=== PATIENT | male | born 1955 | race Caucasian/White ===

== ENCOUNTER 2020-01-30 16:48 | Outpatient (REF) | payer OTHER, SELFPAY | END 2020-01-30 16:49 | disposition home or self-care (01) | LOC: HO.LAB 16:48 | PROVIDERS: Visit Provider Internal Medicine | DX: Z20.828 Contact with and (suspected) exposure to other viral communicable diseases (principal) | CPT/HCPCS: C9803; U0003 ==

== ENCOUNTER 2024-02-29 01:01 | Emergency (ER) | payer OTHER, SELFPAY ==
--- NOTE | ~2024-02-29 | XR_ITS ---
EXAMINATION: XR CHEST CLINICAL INFORMATION: Dyspnea COMPARISON: October 31, 2018 TECHNIQUE: Frontal view of the chest was obtained. FINDINGS: The cardiomediastinal silhouette is stable. Innumerable small calcific granulomas are noted. There is no focal consolidation or pleural effusions. The bony structures and the soft tissues are unremarkable. XR/XR chest 1V IMPRESSION: No acute cardiopulmonary disease. Electronically signed by: Hiram Chinchilla MD 02/29/2024 01:58 AM [facility]
[2024-02-29 01:10] VITALS: BP 174/90; PULSE 77; PULSE 92; RESP 21; TEMP 36.9; O2SAT 95; O2SAT 96; BMI 30.6
--- NOTE | 2024-02-29 01:12 | ECG_ITS ---
Test Reason : DYSPNEA Blood Pressure : / mmHG Vent. Rate : 084 BPM Atrial Rate : 084 BPM P-R Int : 144 ms QRS Dur : 086 ms QT Int : 372 ms P-R-T Axes : 048 021 052 degrees QTc Int : 439 ms Sinus rhythm with Premature atrial complexes Otherwise normal ECG When compared with ECG of 14-JAN-2019 10:43, Criteria for Septal infarct are no longer Present Referred By: Generic ED Physician Electronically Signed By:QUENTIN ALVAREZ
--- NOTE | 2024-02-29 01:19 | ED_ITS ---
HPI - SOB/Dyspnea General Chief Complaint: Dyspnea Stated Complaint: SOB Time Seen by Provider: 02/29/24 01:19 Source: patient Mode of arrival: ambulatory Limitations: no limitations History of Present Illness ED Provider: HPI Narrative: Patient's from [facility] chronic smoker comes here for nonspecific shortness of breath saturating 96% on room no obvious distress no chest pain Related Data Allergies Allergy/AdvReac Type Severity Reaction Status Date / Time lithium [LITHIUM] Allergy Unknown PRONE TO Verified 02/29/24 01:15 TOXICITY Review of Systems 2 Review of Systems: Yes all other systems are reviewed and are negative FORMERLY [facility] Social History Social History Smoked in Last 30 Days: Yes Use of substances other than those prescribed or required for medical reasons: No Advance Directives: No Advance Directives Information Provided: Yes Do you have a plan to hurt others: No Plan Physical Exam 2 Vital Signs: Vital Signs: Last Vital Signs Temp 98.5 F 02/29/24 05:42 Pulse 90 02/29/24 05:42 Resp 20 02/29/24 05:42 BP 159/82 H 02/29/24 05:42 Pulse Ox 96 02/29/24 05:42 O2 Del Method Room Air 02/29/24 05:42 BMI result Body Mass Index 30.6 Appearance: Alert. Oriented X2. No acute distress. Eyes: PERRLA, No Nystagmus ENT: Pharynx normal. Oral Mucosa moist Neck: Normal inspection. Neck supple. CVS: Normal heart rate and rhythm. Pulses normal. Respiratory: No respiratory distress. Equal air entry bilateral, no wheezing/rales/rhonchi Abdomen: Soft and nontender. Bowel sounds are present, no mass palpable, no CVA tenderness Skin: Skin warm and dry. Normal skin color. Normal skin turgor. Extremities: No lower extremity edema. No calf tenderness Neuro: Oriented X 2. No motor deficit. No sensory deficit.No cerebellar signs , cranial nerves II-XII intact Medical Decision Making Medical Decision Making MDM Narrative: Patient has chronic smoker from [facility] sent for questionable shortness a breath workup is negative for any significant shortness a breath patient noticed to be smoker likely short of breath because of chronic smoking in the ER patient is saturating 95% at room air no wheezing noticed chest x-ray negative cardiac workup also negative patient slept normal ambulatory in the ER will discharge patient back to [facility] advised to use inhaler as needed and stop smoking Differential Diagnosis Differential Diagnoses: The differential diagnosis associated with the presentation includes CHF/COPD/chronic bronchitis/pneumothorax Lab Data MDM Lab Attestation statement: I reviewed the patient's lab results. 02/29/24 01:34 02/29/24 01:35 Labs: Lab Results 02/29/24 02/29/24 02/29/24 Range/Units 01:34 01:35 01:39 WBC 7.9 (4.8-10.8) X10*3/uL RBC 3.51 L (4.60-5.80) X10*6/uL Hgb 11.6 L (14.0-18.0) g/dl Hct 34.2 L (42.0-52.0) % MCV 97.4 (80.0-98.0) fL MCH 33.0 (27.0-33.0) pg MCHC 33.9 (31.0-36.0) g/dl RDW 13.8 (11.0-16.0) % Plt Count 137 L (160-400) X10*3/uL MPV 9.3 L (9.4-12.4) fL Immature Gran % (Auto) 0.4 (0.0-0.4) % Neut % (Auto) 29.8 L (45-73) % Lymph % (Auto) 56.5 H (20-40) % [place] % (Auto) 11.8 H (2-11) % Eos % (Auto) 1.1 (0-4) % Baso % (Auto) 0.4 (0-2) % Lymph # (Auto) 4.5 (1.2-4.9) X10*3/uL [place] # (Auto) 0.9 (0.1-1.2) X10*3/uL Eos # (Auto) 0.1 (0.0-0.4) X10*3/uL Baso # (Auto) 0.0 (0.0-0.2) X10*3/uL Abs Immat Gran (auto) 0.03 (0.00-0.03) X10*3/uL Absolute Neuts (auto) 2.4 (2.0-8.3) x10*3/uL Absolute Nucleated RBC 0.000 (0.0-0.012) X10*3/uL Nucleated RBC % (auto) 0.0 (0.0-0.2) /100WBC VBG pH 7.37 (7.32-7.43) VBG pCO2 41 mmHg VBG pO2 115 mmHg VBG HCO3 24 (22-26) mmol/L VBG O2 Saturation 99.0 % VBG Base Excess -0.5 mmol/L Sodium 148 H (135-145) mmol/L Potassium 4.3 (3.3-5.1) mmol/L Chloride 115 H (96-108) mmol/L Carbon Dioxide 22 (22-29) mmol/L Anion Gap 15 (12-20) BUN 16 (9-16) mg/dL Creatinine 1.25 (0.5-1.4) mg/dL Estim Creat Clear Calc 58.1 Estimated GFR 57 Random Glucose 114 (60-115) mg/dL Calcium 8.5 (8.4-10.2) mg/dL Magnesium 1.7 (1.6-2.6) mg/dL Total Bilirubin 0.1 (0.0-1.0) mg/dL AST 14 (5-37) U/L ALT 11 (0-40) U/L Alkaline Phosphatase 66 (39-117) U/L Troponin I High Sens 5.4 (<3.5-35.0) ng/L B-Natriuretic Peptide 180 H (<100) pg/mL Total Protein 5.3 L (6.5-8.0) g/dL Albumin 3.3 L (3.5-5.0) g/dL Urine Color Urine Appearance Urine pH (5.0-9.0) Ur Specific [place] (1.005-1.025) Urine Protein (Neg-Trace) mg/dL Urine Glucose (UA) (Negative) mg/dL Urine Ketones (Negative) mg/dL Urine Blood (Negative) Urine Nitrite (Negative) Ur Leukocyte Esterase (Negative) Urine RBC (0-2) /HPF Urine WBC (0-5) /HPF Ur Squamous Epith Cells (0-2) /HPF Urine Bacteria (None Seen) Hyaline Casts (0-2) /LPF COVID-19 (CRUZITO) Negative (Negative) COVID-19 Clin Com See Note Influenza Type A (ZAIN) Negative (Negative) Influenza Type B (ZAIN) Negative (Negative) Influenza A & B Note See Note 02/29/24 Range/Units 02:14 WBC (4.8-10.8) X10*3/uL RBC (4.60-5.80) X10*6/uL Hgb (14.0-18.0) g/dl Hct (42.0-52.0) % MCV (80.0-98.0) fL MCH (27.0-33.0) pg MCHC (31.0-36.0) g/dl RDW (11.0-16.0) % Plt Count (160-400) X10*3/uL MPV (9.4-12.4) fL Immature Gran % (Auto) (0.0-0.4) % Neut % (Auto) (45-73) % Lymph % (Auto) (20-40) % [place] % (Auto) (2-11) % Eos % (Auto) (0-4) % Baso % (Auto) (0-2) % Lymph # (Auto) (1.2-4.9) X10*3/uL [place] # (Auto) (0.1-1.2) X10*3/uL Eos # (Auto) (0.0-0.4) X10*3/uL Baso # (Auto) (0.0-0.2) X10*3/uL Abs Immat Gran (auto) (0.00-0.03) X10*3/uL Absolute Neuts (auto) (2.0-8.3) x10*3/uL Absolute Nucleated RBC (0.0-0.012) X10*3/uL Nucleated RBC % (auto) (0.0-0.2) /100WBC VBG pH (7.32-7.43) VBG pCO2 mmHg VBG pO2 mmHg VBG HCO3 (22-26) mmol/L VBG O2 Saturation % VBG Base Excess mmol/L Sodium (135-145) mmol/L Potassium (3.3-5.1) mmol/L Chloride (96-108) mmol/L Carbon Dioxide (22-29) mmol/L Anion Gap (12-20) BUN (9-16) mg/dL Creatinine (0.5-1.4) mg/dL Estim Creat Clear Calc Estimated GFR Random Glucose (60-115) mg/dL Calcium (8.4-10.2) mg/dL Magnesium (1.6-2.6) mg/dL Total Bilirubin (0.0-1.0) mg/dL AST (5-37) U/L ALT (0-40) U/L Alkaline Phosphatase (39-117) U/L Troponin I High Sens (<3.5-35.0) ng/L B-Natriuretic Peptide (<100) pg/mL Total Protein (6.5-8.0) g/dL Albumin (3.5-5.0) g/dL Urine Color Yellow Urine Appearance Clear Urine pH 6.5 (5.0-9.0) Ur Specific Wayne 1.010 (1.005-1.025) Urine Protein Negative (Neg-Trace) mg/dL Urine Glucose (UA) Negative (Negative) mg/dL Urine Ketones Negative (Negative) mg/dL Urine Blood Trace H (Negative) Urine Nitrite Negative (Negative) Ur Leukocyte Esterase Negative (Negative) Urine RBC 3-5 H (0-2) /HPF Urine WBC 0-5 (0-5) /HPF Ur Squamous Epith Cells 0-2 (0-2) /HPF Urine Bacteria None Seen (None Seen) Hyaline Casts 0-2 (0-2) /LPF COVID-19 (CRUZITO) (Negative) COVID-19 Clin Com Influenza Type A (ZAIN) (Negative) Influenza Type B (ZAIN) (Negative) Influenza A & B Note ABG Data Attestation ABG: I personally reviewed and interpreted this ABG as follows: Interpretation: No hypoxia Independent Interpretation I performed an independent interpretation of an: EKG and Plain X-Ray Interpretation: Normal sinus rhythm with ventricular rate 84 beats per minute with few PACs no acute ST-T changes no acute ischemia Radiology Impression Discussion of test interpretation with radiology: I have reviewed the radiologist's reading. Radiologist Impression: [address] [address] XRay Report Signed Patient: Rgoer Hooks MR#: [id number] : 1955 Acct:[id number] Age/Sex: 68 / M ADM Date: 02/29/24 Loc: HO.ED Attending Dr: Ordering Physician: Roque Hernández MD Date of Service: 02/29/24 Procedure(s): XR chest 1V Accession Number(s): [id number] cc: Roque Hernández MD~ EXAMINATION: XR CHEST CLINICAL INFORMATION: Dyspnea COMPARISON: October 31, 2018 TECHNIQUE: Frontal view of the chest was obtained. FINDINGS: The cardiomediastinal silhouette is stable. Innumerable small calcific granulomas are noted. There is no focal consolidation or pleural effusions. The bony structures and the soft tissues are unremarkable. XR/XR chest 1V IMPRESSION: No acute cardiopulmonary disease. Electronically signed by: Hiram Chinchilla MD 02/29/2024 01:58 AM [facility] Discharge Plan Discharge Clinical Impression: Chronic lung disease Patient Disposition: Home, Self-Care Instructions: COPD (Chronic Obstructive Pulmonary Disease) (ED), Shortness of Breath (ED) Additional Instructions: You have chronic lung disease from smoking Do not smoke Use inhaler as advised if wheezing Print Language: Rwandan
[2024-02-29 01:39] LABS: MANUAL DIFF FLAG NO
[2024-02-29 01:41] LABS: Basophils Percent Auto 0.4 % (0-2); Eosinophils Absolute Auto 0.1 X10*3/uL (0.0-0.4); Eosinophils Percent Auto 1.1 % (0-4); Hematocrit 34.2 % (42.0-52.0); Hemoglobin 11.6 g/dl (14.0-18.0); Imm Gran Abs Auto 0.03 X10*3/uL (0.00-0.03); Imm Gran Pct Auto 0.4 % (0.0-0.4); Lymphocytes Absolute Auto 4.5 X10*3/uL (1.2-4.9); Lymphocytes Percent Auto 56.5 % (20-40); Mean Corpuscular HGB Conc 33.9 g/dl (31.0-36.0); Mean Corpuscular Volume 97.4 fL (80.0-98.0); Mean Platelet Volume 9.3 fL (9.4-12.4); Monocytes Absolute Auto 0.9 X10*3/uL (0.1-1.2); Monocytes Percent Auto 11.8 % (2-11); Neutrophils Absolute Auto 2.4 x10*3/uL (2.0-8.3); Neutrophils Percent Auto 29.8 % (45-73); Platelet Count 137 X10*3/uL (160-400); Red Blood Count 3.51 X10*6/uL (4.60-5.80); Red Cell Distribution Width 13.8 % (11.0-16.0); White Blood Count 7.9 X10*3/uL (4.8-10.8)
[2024-02-29 01:41] LABS: Venous Blood Gas Refer to POC result
[2024-02-29 01:44] LABS: VBG Base Excess -0.5 mmol/L; VBG HCO3 24 mmol/L (22-26); VBG pCO2 41 mmHg; VBG pH 7.37 (7.32-7.43); VBG pO2 115 mmHg
[2024-02-29 02:00] LABS: Troponin-I High Sensitivity 5.4 ng/L (<3.5-35.0)
[2024-02-29 02:00] LABS: B Type Natriuretic Peptide 180 pg/mL (<100)
[2024-02-29 02:13] VITALS: BP 180/97; PULSE 77; RESP 21; TEMP 36.8; O2SAT 97
[2024-02-29 02:14] LABS: Alanine Aminotransferase 11 U/L (0-40); Albumin Level 3.3 g/dL (3.5-5.0); Alkaline Phosphatase 66 U/L (39-117); Anion Gap 15 (12-20); Aspartate Amino Transferase 14 U/L (5-37); Bilirubin Total 0.1 mg/dL (0.0-1.0); Blood Urea Nitrogen 16 mg/dL (9-16); Calcium 8.5 mg/dL (8.4-10.2); Carbon Dioxide 22 mmol/L (22-29); Chloride 115 mmol/L (96-108); Creatinine Clr Calc Pharmacy 58.1; Estimated Glomerular Filt Rate 57; Glucose Random 114 mg/dL (60-115); Magnesium 1.7 mg/dL (1.6-2.6); Potassium 4.3 mmol/L (3.3-5.1); Sodium 148 mmol/L (135-145); Total Protein 5.3 g/dL (6.5-8.0)
[2024-02-29 02:16] LABS: COVID-19 Test Negative (Negative); IDNOW Serial# 55D5AD1C; IDNOW Serial# 58CA691E; Influenza A Negative (Negative); Influenza B2 Negative (Negative)
[2024-02-29 02:21] LABS: Appearance Urine Clear; Color Urine Yellow; Glucose Urine UA Negative (Negative); Leukocyte Esterase Urine Negative (Negative); Nitrite Urine Negative (Negative); PH 6.5 (5.0-9.0); UMIC TRIGGER UACC YES; Urine Blood Trace (Negative); Urine Ketones Negative (Negative); Urine Protein Negative (Neg-Trace)
[2024-02-29 02:25] LABS: Bacteria Urine None Seen (None Seen); Hyaline Casts Urine 0-2 /LPF (0-2); Squamous Epithelial Cell Urine 0-2 /HPF (0-2); WBC Urine 0-5 /HPF (0-5)
--- NOTE | 2024-02-29 03:20 | MHC.EDTECH ---
This tech took over care of pt at 0300AM,rounded and introduced self to pt pt appears comfortable,call echeverria in reach
[2024-02-29 05:42] VITALS: BP 159/82; PULSE 90; RESP 20; TEMP 36.9; O2SAT 96
--- NOTE | 2024-02-29 06:37 | PC.NURSE ---
Called pts [facility] at [phone] and spoke with Maria Fernanda. Discharge instructions provided over the telephone and pt is ready to return. 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 Pt aware.
--- NOTE | 2024-02-29 07:43 | PC.NURSE ---
This RN touched base with care home in regards to when they would be coming to pick him up, Maria Fernanda alerted more staff members will be in at 8, and they will come pick him up between 8-9. Pt is starting to get ramped up, pacing, attempting to leave, pt had cig/mail officer in hand, security notified to remove from pt. Pt given breakfast tray at this time to try and settle patient at this time
[2024-02-29 09:29] VITALS: BP 169/79; PULSE 75; RESP 18; TEMP 36.8
== END 2024-02-29 09:30 | disposition home or self-care (01) ==
PROVIDERS: Emergency Provider Internal Medicine; PCP Nurse Practitioner Adult Health
DX: J98.4 Other disorders of lung (principal); R06.00 Dyspnea, unspecified; R06.02 Shortness of breath; F17.200 Nicotine dependence, unspecified, uncomplicated
CPT/HCPCS: 36415; 71045; 80053; 81001; 82803; 83735; 83880; 84484; 85025; 87502; 87635; 93005; 99285

== ENCOUNTER → 2024-02-29 01:12 | Outpatient (BNV) | payer OTHER, SELFPAY | PROVIDERS: Emergency Provider Internal Medicine; PCP Nurse Practitioner Adult Health; Visit Provider Internal Medicine | DX: R06.09 Other forms of dyspnea (principal); I49.1 Atrial premature depolarization | CPT/HCPCS: 93010 ==

== ENCOUNTER 2024-11-03 20:56 | Emergency (ER) | payer OTHER, SELFPAY ==
--- OUTSIDE RECORDS SUMMARY | 2024-10-30 23:59 | XMS_ITS | Continuity of Care Document ---
Author Organization [facility] Address [address] [place] [address]- Care Team Providers Care Price Analyst Name Role Phone Francis PAINT TESTER, Mila Josue Primary Care Physician Encounter [facility] Date(s): 09/30/24 - 10/30/24 [facility] [address] [place] [id number] Encounter Type: Triage Allergies, Adverse Reactions, Alerts Substance Criticality Severity Reaction Reaction Severity Status lithium carbonate 1 Active 1encephalopathy Immunizations Given and Recorded Vaccine Date Status Refusal Reason influenza virus vaccine, inactivated 1 12/25/22 Gi brandon influenza virus vaccine, inactivated 2 12/25/18 Gi brandon influenza virus vaccine, inactivated 02/07/18 Give n influenza virus vaccine, inactivated 3 12/01/16 Gi brandon influenza virus vaccine, inactivated 01/24/13 Give n influenza virus vaccine, inactivated 01/01/09 Give n SARS-CoV-2 (COVID-19) mRNA BNT-162b2 vac 01/05/21 Recorded SARS-CoV-2 (COVID-19) mRNA BNT-162b2 vac 04/29/20 Recorded SARS-CoV-2 (COVID-19) mRNA BNT-162b2 vac 04/08/20 Recorded 1Result Comment: [facility] [id number] 2Result Comment: [facility] [id number] 3Result Comment: [id number] Medications ammonium lactate 12% topical cream 1 application, Topically, 2 times a day, apply and rub in well, # 280 Gm, 0 Refills, Maintenance, 06/13/23 3:08:00 PM EDT, Cream, [facility], Partial fill upon patient request if the prescription is for a schedule II opioid drug., 1 application Topically 2 times a day,Instr:apply and rub inwell, 170, cm, 12/25/22 12:55:00 EDT, Height Start Date: 06/13/23 Status: Ordered Quantity: 280.0 Unit: g Repeat number: 1 Aquaphor Healing topical ointment See Instructions, APPLY TOPICALLY 2 TIMES A DAY NEEDED FOR DRY SKIN., # 100 Gm, 2 Refills, Soft Stop, 06/08/23 1:13:00 PM EDT, [facility], APPLY TOPICALLY 2 TIMES A DAY NEEDED FOR DRY SKIN., 170, cm, 12/25/22 12:55:00 EDT, Height Start Date: 06/08/23 Status: Ordered Quantity: 100.0 Unit: g Repeat number: 3 Ativan 0.5 mg oral tablet 0.5 tablet = 0.25 mg, By Mouth, Once, 0 Refills, Maintenance, 12/27/17 3:21:19 PM EDT, Tablet Start Date: 12/27/17 Status: Ordered Repeat number: 1 betamethasone-clotrimazole 0.05%-1% topical cream 1 application, Topically, 2 times a day, # 45 Gm, 2 Refills, Maintenance, 06/08/23 1:13:00 PM EDT, Cream, [facility], 1 application Topically 2 times a day, 170, cm, 12/25/22 12:55:00 EDT, Height Start Date: 06/08/23 Status: Ordered Quantity: 45.0 Unit: g Repeat number: 3 cholecalciferol 50,000 intl units oral capsule 1 capsule = 50,000 International_Units, By Mouth, Every 7 days, # 5 capsule, 11 Refills, Maintenance, 03/19/23 7:44:00 AM EST, Capsule, [facility], Partial fill upon patient request, 170, cm,12/25/22 12:55:00 EDT, Height Start Date: 03/19/23 Stop Date: 03/13/24 Status: Ordered Quantity: 5.0 Unit: capsule Repeat number: 12 cholecalciferol 50,000 intl units oral capsule 1 capsule = 50,000 International_Units, By Mouth, Every 7 days, # 13 capsule, 3 Refills, Maintenance, 03/17/23 10:16:00 AM EST, Capsule, [facility], Partial fill upon patient request, 170, cm, 12/25/22 12:55:00 EDT, Height Start Date: 03/17/23 Stop Date: 03/11/24 Status: Ordered Quantity: 13.0 Unit: capsule Repeat number: 4 Citroma Lemon 1.745 g/30 mL oral liquid See Instructions, DRINK 150 ML BY MOUTH ONCE, # 296 mL, 1 Refills, Maintenance, 07/17/23 1:58:00 PM EDT, [facility], 1, DRINK 150 ML BY MOUTH ONCE, 170, cm, 07/17/23 13:17:00 EDT, Height Start Date: 07/17/23 Status: Ordered Quantity: 296.0 Unit: mL Repeat number: 2 clozapine 100 mg oral tablet = 300 mg, By Mouth, Daily at bedtime, # 90 tablet, 0 Refills, Maintenance, 11/21/16 9:49:21 AM EDT, Tablet Start Date: 11/21/16 Stop Date: 12/21/16 Status: Ordered Quantity: 90.0 Unit: tablet Repeat number: 1 clozapine 50 mg oral tablet = 50 mg, By Mouth, Daily before breakfast, # 30 tablet, 0 Refills, Maintenance, 11/21/16 9:49:17 AM EDT, Tablet Start Date: 11/21/16 Stop Date: 12/21/16 Status: Ordered Quantity: 30.0 Unit: tablet Repeat number: 1 coconut oil coconut oil, See Instructions, # 90 each, Refills 0, Tot. Refills 0, Maintenance, 1 3 x day, :51:00 PM EDT, Compound, 170, cm, 12/25/22 12:55:00 EDT, Height Start Date: 06/15/23 Status: Ordered Quantity: 90.0 Unit: each Repeat number: 1 divalproex sodium 500 mg oral tablet, extended release 1 tablet = 500 mg, By Mouth, 3 times a day, # 60 tablet, 0 Refills, Maintenance, 01/10/16 11:13:42 AM EDT, ER Tablet Start Date: 01/10/16 Status: Ordered Quantity: 60.0 Unit: tablet Repeat number: 1 docusate sodium 100 mg oral capsule See Instructions, TAKE 1 CAPSULE BY MOUTH 2 TIMES A DAY, # 60 capsule, 3 Refills, Maintenance, 09/26/24 7:15:00 AM EDT, [facility], 170, cm, 03/11/24 13:17:00 EST, Height Start Date: 09/26/24 Status: Ordered Quantity: 60.0 Unit: capsule Repeat number: 1 lactulose 10 g/15 mL oral and rectal liquid 30 mL, By Mouth, 2 times a day, X90 DAYS., # 5,400 mL, 10 Refills, Maintenance, 07/13/23 1:43:00 PM EDT, [facility], 170, cm, 07/06/23 12:10:00 EDT, Height Start Date: 07/13/23 Status: Ordered Quantity: 5400.0 Unit: mL Repeat number: 1 MiraLax oral powder for reconstitution = 17 Gm, By Mouth, Daily, dissolve in water before taking, # 255 Gm, 0 Refills, Maintenance, 08/12/2209:33:00 AM EDT, REC Powder, [facility], 17 Gm By Mouth Daily,Instr:dissolve in water before taking, 170, cm, 08/19/20 10:40:00 EDT, Height Start Date: 08/12/21 Status: Ordered Quantity: 255.0 Unit: g Repeat number: 1 oxyCODONE 5 mg oral tablet See Instructions, PRN, 1 tablet By Mouth 20-30 minutes before foot procedure, may repeat x1, # 2 tablet, Refills 0, Tot. Refills 0, Maintenance, as needed for pain, 08/03/23 3:43:00 PM EDT, Instructions Replace Required Details, Route to Pharmacy Electronically, [facility], Partial fill upon patient request if the prescription is for a schedule II opioid drug., 170, cm, 08/03/23 15:16:00EDT, Height Start Date: 08/03/23 Status: Ordered Quantity: 2.0 Unit: tablet Repeat number: 1 Indications: Pain in left foot; polyethylene glycol 3350 oral powder for reconstitution See Instructions, TAKE 17 GM BY MOUTH DAILY INSTR:DISSOLVE IN WATER BEFORE TAKING, # 238 Gm, 11 Refills, Maintenance, 03/16/23 8:37:00 AM EST, [facility], 14, TAKE 17 GM BY MOUTH DAILY INSTR:DISSOLVE IN WATER BEFORE TAKING, 170, cm, 12/25/22 12:55:00 EDT, Height Start Date: 03/16/23 Status: Ordered Quantity: 238.0 Unit: g Repeat number: 12 Potassium Chloride (Agg-Elpu-Ucp 10) 10 mEq oral tablet, extended release 1 tablet = 10 mEq, By Mouth, Daily, # 30 tablet, 11 Refills, Maintenance, 02/14/24 4:09:00 PM EST, [facility], 170, cm, 01/15/24 13:07:00 EST, Height Start Date: 02/14/24 Stop Date: 02/08/25 Status: Ordered Quantity: 30.0 Unit: tablet Repeat number: 12 Tab-A-Kartik oral tablet 1 tablet, By Mouth, Daily, # 30 tablet, 4 Refills, Maintenance, 07/02/24 10:20:00 AM EDT, [facility], 30, 1 tablet By Mouth Daily, 170, cm, 03/11/24 13:17:00 EST, Height Start Date: 07/02/24 Status: Ordered Quantity: 30.0 Unit: tablet Repeat number: 5 Problem List Condition Confirmation Course Effective Dates Status H ealth Status Informant CKD (chronic kidney disease) stage 3, GFR 30-59 ml/min Confirmed Active COPD (chronic obstructive pulmonary disease) Confirmed Active Chronic schizophrenia Confirmed Active Constipation NOS Confirmed 04/15/10 Active Esophageal reflux (GERD) Confirmed 04/15/10 Active Histoplasmosis NEC Confirmed Active Tobacco dependence syndrome Confirmed Active Social History Social History Type Response Smoking Status Current every day sm oker; Tobacco user in household: No entered on: 03/24/13 Sex Sex Representation Male (finding) Patient Care team information Care Team Personnel Name: Keke Spencer RN Position: [facility] RN Member Role: Primary Care Nurse Name: Jessica Montes RN Position: [facility] RN Member Role: Primary Care Nurse Name: Griselda Lopez RN Position: [facility] ED RN W/OE and Tasks Member Role: Primary Care Nurse Name: Mila Blanco NP Position: [facility] PCO Associate Professional Member Role: PCP Address: [address] [place] [address]- Telecom: Name: Laxmi Beltran RN Position: [facility] RN Member Role: Primary Care Nurse Name: Josie France RN Position: [facility] Cook Helper Member Role: Primary Care Nurse Care Team Related Persons Name: GALEN CAMARGO Name: NADIA LANDON Name: FRENCH LANDON Name: HEAVEN CONDE Name: HEAVEN BECERRA Insurance Providers Guarantor name: JEAN CARLOS LANDON Health Plan Information #: 1 Payer: [facility] Payer Identifier: DONNA Member Number: [id number] Group Number: [id number] Subscriber Identifier: [id number] Relationship to Subscriber: self Coverage Type: Medicare Managed Care (Includes Medicare Advantage Plans) Coverage Verification Date: DONNA Telecom: NA Address: NA
--- OUTSIDE RECORDS SUMMARY | 2024-11-01 23:59 | XMS_ITS | Continuity of Care Document ---
Author Organization [facility] Adult Address [address] [place] [address]- Care Team Providers Care Jumpbasting Lining Baster Name Role Phone Francis TRIGONOMETRY TUTOR, Mila Josue Primary Care Physician Encounter [facility] Date(s): 10/02/24 - 11/01/24 [facility] [address] [place] [id number]- Encounter Type: Triage Allergies, Adverse Reactions, Alerts [...] mRNA BNT-[id number] vac 04/08/20 Recorded 1Result Comment: [facility] [id number] 2Result Comment: [facility] [id number] [phone] 3Result Comment: [id number] Medications ammonium lactate 12% topical cream 1 application, Topically, 2 times a day, apply and rub in well, # 280 Gm, 0 Refills, Maintenance, 06/13/23 3:08:00 PM EDT, Cream, [facility], Partial fill upon patient request if [...] Refills, Soft Stop, 06/08/23 1:13:00 PM EDT, [facility], APPLY TOPICALLY 2 TIMES A DAY [...] Refills, Maintenance, 06/08/23 1:13:00 PM EDT, Cream, [facility], 1 application Topically 2 times a day, 170, cm, 12/25/22 12:55:00 EDT, Height Start Date: 06/08/23 Status: Ordered Quantity: 45.0 Unit: g Repeat number: 3 cholecalciferol 50,000 intl units oral capsule 1 capsule = 50,000 International_Units, By Mouth, Every 7 days, # 5 capsule, 11 Refills, Maintenance, 03/19/23 7:44:00 AM EST, Capsule, [facility], Partial fill upon patient request, 170, cm,12/25/22 12:55:00 EDT, Height Start Date: 03/19/23 Stop Date: 03/13/24 Status: Ordered Quantity: 5.0 Unit: capsule Repeat number: 12 cholecalciferol 50,000 intl units oral capsule 1 capsule = 50,000 International_Units, By Mouth, Every 7 days, # 13 capsule, 3 Refills, Maintenance, 03/17/23 10:16:00 AM EST, Capsule, [facility], Partial fill upon patient request, 170, cm, 12/25/22 12:55:00 EDT, Height Start Date: 03/17/23 Stop Date: 03/11/24 Status: Ordered Quantity: 13.0 Unit: capsule Repeat number: 4 Citroma Lemon 1.745 g/30 mL oral liquid See Instructions, DRINK 150 ML BY MOUTH ONCE, # 296 mL, 1 Refills, Maintenance, 07/17/23 1:58:00 PM EDT, [facility], 1, DRINK 150 ML BY MOUTH [...] 3 Refills, Maintenance, 09/26/24 7:15:00 AM EDT, [facility], 170, cm, 03/11/24 13:17:00 EST, Height Start Date: 09/26/24 Status: Ordered Quantity: 60.0 Unit: capsule Repeat number: 1 lactulose 10 g/15 mL oral and rectal liquid 30 mL, By Mouth, 2 times a day, X90 DAYS., # 5,400 mL, 10 Refills, Maintenance, 07/13/23 1:43:00 PM EDT, [facility], 170, cm, 07/06/23 12:10:00 EDT, Height Start Date: 07/13/23 Status: Ordered Quantity: 5400.0 Unit: mL Repeat number: 1 MiraLax oral powder for reconstitution = 17 Gm, By Mouth, Daily, dissolve in water before taking, # 255 Gm, 0 Refills, Maintenance, 08/12/2209:33:00 AM EDT, REC Powder, [facility], 17 Gm By Mouth Daily,Instr:dissolve in [...] Replace Required Details, Route to Pharmacy Electronically, [facility], Partial fill upon patient request if [...] 11 Refills, Maintenance, 03/16/23 8:37:00 AM EST, [facility], 14, TAKE 17 GM BY MOUTH DAILY INSTR:DISSOLVE IN WATER BEFORE TAKING, 170, cm, 12/25/22 12:55:00 EDT, Height Start Date: 03/16/23 Status: Ordered Quantity: 238.0 Unit: g Repeat number: 12 Potassium Chloride (Xpi-Rutd-Mla 10) 10 mEq oral tablet, extended release 1 tablet = 10 mEq, By Mouth, Daily, # 30 tablet, 11 Refills, Maintenance, 02/14/24 4:09:00 PM EST, [facility], 170, cm, 01/15/24 13:07:00 EST, Height Start Date: 02/14/24 Stop Date: 02/08/25 Status: Ordered Quantity: 30.0 Unit: tablet Repeat number: 12 Tab-A-Kartik oral tablet 1 tablet, By Mouth, Daily, # 30 tablet, 4 Refills, Maintenance, 07/02/24 10:20:00 AM EDT, [facility], 30, 1 tablet By Mouth Daily, [...] Team Personnel Name: Keke Spencer RN Position: [facility] RN Member Role: Primary Care Nurse Name: Jessica Montes RN Position: [facility] RN Member Role: Primary Care Nurse Name: Griselda Lopez RN Position: [facility] ED RN W/OE and Tasks Member Role: Primary Care Nurse Name: Mila Blanco NP Position: [facility] PCO Associate Professional Member Role: PCP Address: [address] [place] [address]- Telecom: Name: Laxmi Beltran RN Position: [facility] RN Member Role: Primary Care Nurse Name: Josie France RN Position: [facility] Small Animal Caretaker Member Role: Primary Care Nurse Care Team Related Persons Name: GALEN CAMARGO Name: NADIA LANDON Name: FRENCH LANDON Name: HEAVEN CONDE Name: HEAVEN BECERRA Insurance Providers Guarantor name: JEAN CARLOS LANDON Health Plan Information #: 1 Payer: [facility] Payer Identifier: DONNA Member Number: [id number] Group Number: [id number] Subscriber Identifier: [id number] Relationship to Subscriber: self Coverage Type: Medicare Managed Care (Includes Medicare Advantage Plans) Coverage Verification Date: DONNA Telecom: NA Address: NA
--- NOTE | ~2024-11-03 | XR_ITS ---
CLINICAL HISTORY: constipation 1 view abdomen Comparison: None provided Findings: Low lung volumes with mild bibasilar atelectasis/pneumonitis in the [id number]. No small bowel dilatation in the imaged abdomen. Moderate to severe stool burden noted. Degenerative changes include imaged hips with question avascular necrosis, particularly in the right superficial opacities noted including involving the follicle in the [id number]. IMPRESSION: 1. No small bowel obstruction. 2. Moderate to severe stool burden This document has been electronically signed by: Dave Perla MD on 11/03/2024 23:00:30
[2024-11-03 21:04] VITALS: BP 141/82; BP 156/98; PULSE 84; PULSE 96; RESP 16; TEMP 36.6; O2SAT 96; O2SAT 99; BMI 25.5
[2024-11-03 21:08] VITALS: BP 141/82; PULSE 84; RESP 16; TEMP 36.6; O2SAT 96
[2024-11-03 21:26] LABS: Hematocrit 38.8 % (42.0-52.0); Hemoglobin 13.3 g/dl (14.0-18.0); Imm Gran Abs Auto 0.02 X10*3/uL (0.00-0.03); Imm Gran Pct Auto 0.2 % (0.0-0.4); Lymphocytes Absolute Auto 8.9 X10*3/uL (1.2-4.9); MANUAL DIFF FLAG SCAN; Mean Corpuscular HGB Conc 34.3 g/dl (31.0-36.0); Mean Corpuscular Hemoglobin 32.8 pg (27.0-33.0); Mean Corpuscular Volume 95.8 fL (80.0-98.0); NRBC Abs Auto 0.020 X10*3/uL (0.0-0.012); NRBC Pct Auto 0.2 /100WBC (0.0-0.2); Platelet Count 120 X10*3/uL (160-400); Red Blood Count 4.05 X10*6/uL (4.60-5.80); SCAN SMEAR FLAG 1; White Blood Count 12.0 X10*3/uL (4.8-10.8)
[2024-11-03 21:44] LABS: Anion Gap 12 (12-20); Blood Urea Nitrogen 7 mg/dL (9-16); Calcium 8.5 mg/dL (8.4-10.2); Carbon Dioxide 24 mmol/L (22-29); Chloride 109 mmol/L (96-108); Creatinine Clr Calc Pharmacy 56.2; Estimated Glomerular Filt Rate 54; Magnesium 1.3 mg/dL (1.6-2.6); Potassium 3.9 mmol/L (3.3-5.1); Sodium 141 mmol/L (135-145)
--- NOTE | 2024-11-03 22:09 | ED.GENADULT ---
HPI - General Adult General Chief complaint: General Medical Stated complaint: constipation, AMS, HTN, Schizophrenic Time Seen by Provider: 11/03/24 21:47 Source: patient, EMS and old records reviewed Mode of arrival: EMS Limitations: other (Intellectual delay, schizophrenia) History of Present Illness ED Provider: Dr. Chaya Majano HPI narrative: 69-year-old male with a history of schizophrenia presenting via EMS from a [place] [facility] with reported constipation. Staff reported to EMS he has not had a bowel movement in 3 days. Patient has no complaints. Denies abdominal pain. Voiding urine normally. Eating and drinking normally. Denies nausea. No reported fever. Related Data Previous Rx's ?Medication ?Instructions ?Recorded polyethylene glycol 3350 17 17 g PO DAILY #119 grams 11/04/24 gram/dose oral powder (Miralax) Allergies Allergy/AdvReac Type Severity Reaction Status Date / Time lithium (LITHIUM) Allergy Unknown PRONE TO Verified 11/03/24 21:07 TOXICITY Review of Systems Review of Systems: As per HPI, full review of systems performed and negative but for the above mentioned pertinent positives and negatives. [facility] Social History Social History Smoked in Last 30 Days: Yes Use of substances other than those prescribed or required for medical reasons: No Advance Directives: No Advance Directives Information Provided: Yes Physical Exam ED Exam Exam: GENERAL: Well-Appearing, conversant, no acute distress. SKIN: Normal skin color for ethnicity, warm, dry, no rashes noted. HEENT: Normocephalic, atraumatic, no stridor, posterior oropharynx nonerythematous, dentition intact, EOMI. NECK: Soft, supple, full ROM, midline structures nontender, no step-offs, no deformities, no lymphadenopathy. CHEST: Heart regular rate and rhythm, no murmurs, symmetric chest rise and fall. PULMONARY: Clear to auscultation bilaterally, no labored breathing, no wheezes/rhales/rhonchi. ABDOMINAL: Soft, nondistended, nontender, no palpable mass, quiet bowel sounds in all quadrants. : Deferred. MUSCULOSKELETAL: Normal tone, full range of motion, no deformities, no peripheral edema. NEURO: Alert and oriented x3, CN II through XII intact, equal strength and sensation bilateral upper and lower extremities, no focal neurologic deficits. PSYCHIATRIC: Normal affect, fluid speech, good eye contact and appropriate demeanor. Vital Signs: Vital Signs - 24 hr 11/03/24 21:04 11/03/24 21:08 11/03/24 22:18 Temperature 97.8 F 97.8 F Pulse Rate 84 84 78 Respiratory Rate 16 16 18 Blood Pressure 141/82 H 141/82 H 165/105 H Pulse Oximetry 96 96 96 Oxygen Delivery Method Room Air Room Air Room Air 11/04/24 00:20 11/04/24 02:28 11/04/24 03:25 Temperature 98.1 F 98.3 F 98.6 F Pulse Rate 82 77 76 Respiratory Rate 16 18 20 Blood Pressure 131/91 H 172/93 H 163/91 H Pulse Oximetry 95 98 97 Oxygen Delivery Method Room Air Room Air Room Air 11/04/24 03:46 Temperature 98.6 F Pulse Rate 76 Respiratory Rate 20 Blood Pressure 163/91 H Pulse Oximetry 97 Oxygen Delivery Method Room Air BMI result Body Mass Index 25.5 Medications Administered Discontinued Medications Generic Name Dose Route Start Last Admin Trade Name Freq PRN Reason Stop Dose Admin Magnesium Citrate 300 ml 11/03/24 22:10 11/03/24 23:07 Magnesium Citrate 300 Ml Solution PO 11/03/24 22:11 300 ml ONCE ONE Administration Magnesium Oxide 400 mg 11/03/24 22:10 11/03/24 22:16 Magnesium Oxide 400 Mg Tablet PO 11/03/24 22:11 400 mg ONCE ONE Administration Medical Decision Making Medical Decision Making [facility] Narrative: 69-year-old male with a history of schizophrenia presenting with reports of no bowel movement in 3 days. Patient has no complaints and is not vomiting. KUB obtained to evaluate level of stool burden. Differential diagnosis includes: Constipation, dehydration, electrolyte abnormality, renal insufficiency, bowel obstruction, among others. KUB shows significant stool burden. We will give a dose of Mag citrate here in the emergency department. Also given a dose of magnesium oxide given his significantly low magnesium level on his chemistry panel. Patient remained stable, resting comfortably. After significant bowel movement, patient is stable to return to the [place] [facility] [place]. Provided with a prescription for MiraLax. Discharged back in stable condition. Differential Diagnosis Differential Diagnoses: The differential diagnosis associated with the presentation includes (As above) Admission/Observation Consideration of admission/observation: Escalation of care including admission/observation considered Lab Data [facility] Lab Attestation statement: I reviewed the patient's lab results. 11/03/24 21:20 11/03/24 21:20 Labs: Lab Results 11/03/24 Range/Units 21:20 WBC 12.0 H (4.8-10.8) X10*3/uL RBC 4.05 L (4.60-5.80) X10*6/uL Hgb 13.3 L (14.0-18.0) g/dl Hct 38.8 L (42.0-52.0) % MCV 95.8 (80.0-98.0) fL MCH 32.8 (27.0-33.0) pg MCHC 34.3 (31.0-36.0) g/dl RDW 13.9 (11.0-16.0) % Plt Count 120 L (160-400) X10*3/uL MPV 10.2 (9.4-12.4) fL Immature Gran % (Auto) 0.2 (0.0-0.4) % Neut % (Auto) 19.8 L (45-73) % Lymph % (Auto) 73.9 H (20-40) % [place] % (Auto) 5.1 (2-11) % Eos % (Auto) 0.7 (0-4) % Baso % (Auto) 0.3 (0-2) % Lymph # (Auto) 8.9 H (1.2-4.9) X10*3/uL [place] # (Auto) 0.6 (0.1-1.2) X10*3/uL Eos # (Auto) 0.1 (0.0-0.4) X10*3/uL Baso # (Auto) 0.0 (0.0-0.2) X10*3/uL Abs Immat Gran (auto) 0.02 (0.00-0.03) X10*3/uL Absolute Neuts (auto) 2.4 (2.0-8.3) x10*3/uL Absolute Nucleated RBC 0.020 H (0.0-0.012) X10*3/uL Nucleated RBC % (auto) 0.2 (0.0-0.2) /100WBC Smear Tech's Comments VERIFIED Sodium 141 (135-145) mmol/L Potassium 3.9 (3.3-5.1) mmol/L Chloride 109 H (96-108) mmol/L Carbon Dioxide 24 (22-29) mmol/L Anion Gap 12 (12-20) BUN 7 L (9-16) mg/dL Creatinine 1.32 (0.5-1.4) mg/dL Estim Creat Clear Calc 56.2 Estimated GFR 54 Random Glucose 93 (60-115) mg/dL Calcium 8.5 (8.4-10.2) mg/dL Magnesium 1.3 L* (1.6-2.6) mg/dL Radiology Impression Discussion of test interpretation with radiology: I have reviewed the radiologist's reading. Radiologist Impression: 1 view abdomen Comparison: None provided Findings: Low lung volumes with mild bibasilar atelectasis/pneumonitis in the [id number]. No small bowel dilatation in the imaged abdomen. Moderate to severe stool burden noted. Degenerative changes include imaged hips with question avascular necrosis, particularly in the right superficial opacities noted including involving the follicle in the [id number]. IMPRESSION: 1. No small bowel obstruction. 2. Moderate to severe stool burden Independent Historian Clinical information obtained from an independent historian. History obtained from or confirmed by: EMS External Record Review External record reviewed: Inpatient record Prescription Management I considered prescription management with: Other (Laxatives) Chronic Conditions Patient?s care impacted by: Other (Schizophrenia) Social Determinants Patient?s care significantly limited by Social Determinants of Health including: Problems related to primary support group and Other Social Determinant of Health Discharge Plan Discharge Clinical Impression: Constipation, Hypomagnesemia Patient Disposition: Home, Self-Care Instructions: Constipation (DC) Additional Instructions: Constipation Remedy 1 Lb prunes 1 Lb pitless dates 1 Lb raisins 16 teabags Smooth Move tea brewed in 2 cups water 1 Cup brown sugar 1 Cup lemon juice Mix in a varnish blender Put in freezer (never completely freezes) Can be used as a spread on crackers, toast, etc. (about 1-2 tablespoons per dose) Use MiraLax daily for regular bowel movements. Use the above recipe for improve regularity as well. Return to the ER with any new or worsening symptoms. Prescriptions: New polyethylene glycol 3350 [Miralax] 17 gram/dose powder 17 g PO DAILY Qty: 119 0RF Interventions: ED Discharge Assessment Last Done: 11/04/24 03:25 Discharge Date/Time: 11/04/24 05:50 Print Language: Yi
[2024-11-03 22:18] VITALS: BP 165/105; PULSE 78; RESP 18; O2SAT 96
[2024-11-04 00:20] VITALS: BP 131/91; PULSE 82; RESP 16; TEMP 36.7; O2SAT 95
[2024-11-04 02:28] VITALS: BP 172/93; PULSE 77; RESP 18; TEMP 36.8; O2SAT 98
--- OUTSIDE RECORDS SUMMARY | 2024-11-04 03:23 | XMS_ITS | Encounter Summary ---
Author Organization [facility] Address [address] [place] [address] Care Team Providers Care Evidence Custodian Name Role Phone Nessa Jerez NP Primary Care Provider Encounter Details Date Type Department Care Team (Late st Contact Info) Description 04/08/2024 Lab Requisition [facility] [place] [facility] - Main Lab [address] [facility] [place] [address] Omar Mccloud NP [address] [place] [address] Other half-way (current) drug therapy Social History Tobacco Use Types Packs/Day Years Used Date Smoking Tobacco: Never Assessed Sex and Gender Information Value Date Recorded Sex Assigned at Not on file Legal Sex Male 10:34 PM EST Gender Identity Not on file Sexual Orientation Not on file documented as of this encounter Plan of Treatment Not on file documented as of this encounter Procedures Procedure Name Priority Date/Time Associated Diagnosis Comments MANUAL DIFFERENTIAL - SYSMEX WAM Routine 04/08/2024 6:48 AM EST Other half-way (current) drug therapy CBC WITH AUTO DIFFERENTIAL Routine 04/08/2024 6:48 AM EST Other half-way (current) drug therapy CBC AND DIFFERENTIAL Routine 04/08/2024 6:48 AM EST Other half-way (current) drug therapy POTASSIUM Routine 04/08/2024 6:48 AM EST Other half-way (current) drug therapy documented in this encounter Results * (ABNORMAL) Manual differential (04/08/2024 6:48 AM EST) Neutrophils % 31.0 % LAB HEMETOLOGY METHOD 04/08/2024 10:50 AM [facility] Lymphocytes % 63.0 % LAB HEMETOLOGY METHOD 04/08/2024 10:50 AM [facility] Monocytes % 6.0 % LAB HEMETOLOGY METHOD 04/08/2024 10:50 AM [facility] Eosinophils % 0.0 % LAB HEMETOLOGY METHOD 04/08/2024 10:50 AM [facility] Basophils % 0.0 % LAB HEMETOLOGY METHOD 04/08/2024 10:50 AM [facility] Neutrophils Absolute Manual 2.51 1.50 - 7.00 K/mcL LAB HEMETOLOGY METHOD 04/08/2024 10:50 AM [facility] Lymphocytes Absolute 5.10(H) 1.00 - 5.00 K/mcL LAB HEMETOLOGY METHOD 04/08/2024 10:50 AM [facility] Monocytes Absolute Manual 0.49 0.20 - 1.00 K/mcL LAB HEMETOLOGY METHOD 04/08/2024 10:50 AM [facility] Eosinophils Absolute Manual 0.00 0.00 - 0.50 K/mcL LAB HEMETOLOGY METHOD 04/08/2024 10:50 AM [facility] Basophils Absolute Manual 0.00 0.00 - 0.20 K/mcL LAB HEMETOLOGY METHOD 04/08/2024 10:50 AM [facility] Rbc Morphology Consistent with indices Consistent with indices, Normal for LAB HEMETOLOGY METHOD 04/08/2024 10:50 AM [facility] Platelet Morphology - WAM See Note(A) Normal LAB HEMETOLOGY METHOD 04/08/2024 10:50 AM [facility] Comment:PLT: Normal Blood Venous blood specimen / Unknown Venipuncture / Unknown 04/08/2024 6:48 AM EST 04/08/2024 9:03 AM EST us Omar Mccloud NP LAB BLOOD ORDERABLES Final Result [facility] [address] [place] [address], [place] [phone] * (ABNORMAL) CBC auto differential (04/08/2024 6:48 AM EST) WBC 8.1 4.8 - 10.8 K/mcL LAB HEMETOLOGY METHOD 04/08/2024 10:50 AM EST [facility] RBC 3.70(L) 4.50 - 5.50 M/mcL LAB HEMETOLOGY METHOD 04/08/2024 10:50 AM [facility] Hemoglobin 12.1(L) 13.5 - 17.5 g/dL LAB HEMETOLOGY METHOD 04/08/2024 10:50 AM [facility] Hematocrit 37.3(L) 42.0 - 54.0 % LAB HEMETOLOGY METHOD 04/08/2024 10:50 AM EST [facility] MCV 100.5(H) 79.0 - 98.0 FL LAB HEMETOLOGY METHOD 04/08/2024 10:50 AM [facility] MCH 32.6(H) 27.0 - 32.0 pcg LAB HEMETOLOGY METHOD 04/08/2024 10:50 AM EST [facility] MCHC 32.4 32.0 - 37.0 g/dL LAB HEMETOLOGY METHOD 04/08/2024 10:50 AM EST [facility] RDW 14.1 11.0 - 15.0 % LAB HEMETOLOGY METHOD 04/08/2024 10:50 AM [facility] Platelets 150 130 - 400 K/mcL LAB HEMETOLOGY METHOD 04/08/2024 10:50 AM [facility] MPV 10.4 7.0 - 11.0 FL LAB HEMETOLOGY METHOD 04/08/2024 10:50 AM EST [facility] NRBC 0.2 <1.0 % LAB HEMETOLOGY METHOD 04/08/2024 10:50 AM EST [facility] NRBC Absolute 0.02 <0.10 K/mcL LAB HEMETOLOGY METHOD 04/08/2024 10:50 AM EST [facility] Blood Venous blood specimen / Unknown Venipuncture / Unknown 04/08/2024 6:48 AM EST 04/08/2024 9:03 AM EST Omar Mccloud NP LAB BLOOD ORDERABLES Final Result Performing Organization Address [facility]/ZIP Co de Phone Number [facility] [address] [place] [address], [place] [phone] * Potassium (04/08/2024 6:48 AM EST) [facility] Potassium 4.7 3.5 - 5.5 mmol/L LAB CHEMISTRY METHOD 04/08/2024 10:13 AM EST [facility] Blood Venous blood specimen / Unknown Venipuncture / Unknown 04/08/2024 6:48 AM EST 04/08/2024 9:03 AM EST Omar Mccloud NP LAB BLOOD ORDERABLES Final Result [facility] [address] [place] [address], [place] [phone] documented in this encounter Visit Diagnoses Diagnosis Other half-way (current) drug therapy documented in this encounter Care Teams Evidence Custodian Relationship Specialty Start Date End Date [facility]essa Jerez NP [facility] [place], [place] PCP - General Nurse Practitioner 04/03/24 documented as of this encounter
--- OUTSIDE RECORDS SUMMARY | 2024-11-04 03:23 | XMS_ITS | Encounter Summary ---
Author Organization [facility] Address [address] [place] [address] Care Team Providers Care Macaroni Press Operator Name Role Phone Nessa Jerez NP Primary Care Provider [phone] Encounter Details Date Type Department Care Team (Late st Contact Info) Description 07/28/2024 Lab Requisition [facility] - Main Lab [address] [facility] [place] [address] Omar Mccloud NP [address] [place] [address] Other correction (current) drug therapy Social History Tobacco Use [...] Procedure Name Priority Date/Time Associated Diagnosis Comments CBC WITH AUTO DIFFERENTIAL Routine 07/29/2024 6:52 AM EDT 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 CBC AND DIFFERENTIAL Routine 07/29/2024 6:52 AM EDT 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 documented in this encounter Results * (ABNORMAL) CBC auto differential (07/29/2024 6:52 AM EDT) WBC 10.9(H) 4.8 - 10.8 K/[facility] LAB HEMETOLOGY METHOD 07/29/2024 8:50 AM EDT [facility] LAB RBC 4.20(L) 4.50 - 5.50 M/[facility] LAB HEMETOLOGY METHOD 07/29/2024 8:50 AM [facility] LAB Hemoglobin 13.5 13.5 - 17.5 g/dL LAB HEMETOLOGY METHOD 07/29/2024 8:50 AM [facility] LAB Hematocrit 41.9(L) 42.0 - 54.0 % LAB HEMETOLOGY METHOD 07/29/2024 8:50 AM [facility] LAB MCV 100.7(H) 79.0 - 98.0 FL LAB HEMETOLOGY METHOD 07/29/2024 8:50 AM [facility] LAB MCH 32.5(H) 27.0 - 32.0 pcg LAB HEMETOLOGY METHOD 07/29/2024 8:50 AM [facility] LAB MCHC 32.2 32.0 - 37.0 g/dL LAB HEMETOLOGY METHOD 07/29/2024 8:50 AM [facility] LAB RDW 14.4 11.0 - 15.0 % LAB HEMETOLOGY METHOD 07/29/2024 8:50 AM [facility] LAB Platelets 150 130 - 400 K/mcL LAB HEMETOLOGY METHOD 07/29/2024 8:50 AM [facility] LAB MPV 11.3(H) 7.0 - 11.0 FL LAB HEMETOLOGY METHOD 07/29/2024 8:50 AM [facility] LAB NRBC 0.6 <1.0 % LAB HEMETOLOGY METHOD 07/29/2024 8:50 AM [facility] LAB NRBC Absolute 0.06 <0.10 K/mcL LAB HEMETOLOGY METHOD 07/29/2024 8:50 AM [facility] LAB Neutrophils Relative 23.2 % LAB HEMETOLOGY METHOD 07/29/2024 8:50 AM [facility] LAB Comment:This is an appended report. These results have been appended to a previously preliminary verified report. Lymphocytes Relative 69.0 % LAB HEMETOLOGY METHOD 07/29/2024 8:50 AM [facility] LAB Comment:This is an appended report. These results have been appended to a previously preliminary verified report. Monocytes Relative 6.2 % LAB HEMETOLOGY METHOD 07/29/2024 8:50 AM [facility] LAB Comment:This is an appended report. These results have been appended to a previously preliminary verified report. Eosinophils Relative 0.9 % LAB HEMETOLOGY METHOD 07/29/2024 8:50 AM [facility] LAB Comment:This is an appended report. These results have been appended to a previously preliminary verified report. Basophils Relative 0.4 % LAB HEMETOLOGY METHOD 07/29/2024 8:50 AM [facility] LAB Comment:This is an appended report. These results have been appended to a previously preliminary verified report. Immature Granulocytes Relative 0.3 % LAB HEMETOLOGY METHOD 07/29/2024 8:50 AM [facility] LAB Comment:This is an appended report. These results have been appended to a previously preliminary verified report. Neutrophils Absolute 2.53 1.50 - 7.00 K/mcL LAB HEMETOLOGY METHOD 07/29/2024 8:50 AM [facility] LAB Comment:This is an appended report. These results have been appended to a previously preliminary verified report. Lymphocytes Absolute 7.51(H) 1.00 - 5.00 K/mcL LAB HEMETOLOGY METHOD 07/29/2024 8:50 AM [facility] LAB Comment:This is an appended report. These results have been appended to a previously preliminary verified report. Monocytes Absolute 0.67 0.20 - 1.00 K/mcL LAB HEMETOLOGY METHOD 07/29/2024 8:50 AM [facility] LAB Comment:This is an appended report. These results have been appended to a previously preliminary verified report. Eosinophils Absolute 0.10 0.00 - 0.50 K/mcL LAB HEMETOLOGY METHOD 07/29/2024 8:50 AM EDT [facility] LAB Comment:This is an appended report. These results have been appended to a previously preliminary verified report. Basophils Absolute 0.04 0.00 - 0.20 K/mcL LAB [facility] 07/29/2024 8:50 AM EDT [facility] LAB Comment:This is an appended report. These results have been appended to a previously preliminary verified report. Immature Granulocytes Absolute 0.03 0.00 - 0.03 K/mcL LAB [facility] 07/29/2024 8:50 AM EDT [facility] LAB Comment:This is an appended report. These results have been appended to a previously preliminary verified report. Blood Venous blood specimen / Unknown Venipuncture / Unknown 07/29/2024 6:52 AM EDT 07/29/2024 7:50 AM EDT us Omar Mccloud NP LAB BLOOD ORDERABLES Final Result [facility] ([facility]) [facility] LAB [address] [place] [address], documented in this encounter Visit Diagnoses Diagnosis Other correction (current) drug therapy documented in this encounter Care Teams Macaroni Press Operator Relationship Specialty Start Date End Date Nessa Jerez NP [address] [place] [address] PCP - General Nurse Practitioner 04/03/24 documented as of this encounter
--- OUTSIDE RECORDS SUMMARY | 2024-11-04 03:24 | XMS_ITS | Encounter Summary ---
Author Organization [facility] Address [address] [place] [address] Care Team Providers Care Cad Designer Name Role Phone Nessa Jerez NP Primary Care Provider Encounter Details Date Type Department Care Team (Late st Contact Info) Description 01/15/2024 Lab Requisition [facility] - Main Lab [address] [facility] [email or web address] [address] Nessa Jerez NP [address] [place], [place] Encounter for screening for malignant neoplasm of prostate; Vitamin B12 deficiency anemia due to intrinsic factor deficiency; Vitamin D deficiency, unspecified Social History Tobacco Use Types Packs/Day Years [...] Procedure Name Priority Date/Time Associated Diagnosis Comments PROSTATE SPECIFIC ANTIGEN SCREEN Routine 01/15/2024 9:25 AM EST Encounter for screening for malignant neoplasm of prostate Vitamin B12 deficiency anemia due to intrinsic factor deficiency Vitamin D deficiency, unspecified TRAVEL PHLEBOTOMY FEE Routine 01/15/2024 9:25 AM EST Encounter for screening for malignant neoplasm of prostate Vitamin B12 deficiency anemia due to intrinsic factor deficiency Vitamin D deficiency, unspecified VITAMIN D 25 HYDROXY Routine 01/15/2024 9:25 AM EST Encounter for screening for malignant neoplasm of prostate Vitamin B12 deficiency anemia due to intrinsic factor deficiency Vitamin D deficiency, unspecified COMPLETE BLOOD COUNT Routine 01/15/2024 9:25 AM EST Encounter for screening for malignant neoplasm of prostate Vitamin B12 deficiency anemia due to intrinsic factor deficiency Vitamin D deficiency, unspecified VITAMIN B12 Routine 01/15/2024 9:25 AM EST Encounter for screening for malignant neoplasm of prostate Vitamin B12 deficiency anemia due to intrinsic factor deficiency Vitamin D deficiency, unspecified documented in this encounter Results * Travel phlebotomy fee (01/15/2024 9:25 AM EST) [facility] TRAVEL PHLEBOTOMY FEE Completed 01/15/2024 12:01 PM EST [facility] Blood Venous blood specimen / Unknown Venipuncture / Unknown 01/15/2024 9:25 AM EST 01/15/2024 11:10 AM EST Nessa Jerez NP LAB BLOOD ORDERABLES Final R esult Performing Organization Address City/[facility]/ZIP Co de Phone Number [facility] LAB [address] [place] [address], [place] [phone] * Vitamin D 25 hydroxy (01/15/2024 9:25 AM EST) [facility] Vit D, 25-Hydroxy 76.7 30.0 - 80.0 ng/mL LAB CHEMISTRY METHOD 01/15/2024 2:50 PM EST [facility] Blood Venous blood specimen / Unknown Venipuncture / Unknown 01/15/2024 9:25 AM EST 01/15/2024 11:10 AM EST Nessa Jerez NP LAB BLOOD ORDERABLES Final R esult [facility] [address] [place] [address], [place] [phone] * Vitamin B12 (01/15/2024 9:25 AM EST) [facility] Vitamin B-12 349 250 - 900 pcg/mL LAB CHEMISTRY METHOD 01/15/2024 3:06 PM EST [facility] Blood Venous blood specimen / Unknown Venipuncture / Unknown 01/15/2024 9:25 AM EST 01/15/2024 11:[address] [facility] [facility] BLOOD ORDERABLES Final R esult Performing Organization Address City/[facility]/ZIP Co de Phone Number [facility] [address] [place] [address], * Prostate specific antigen screen (01/15/2024 9:25 AM EST) PSA 1.52 0.00 - 4.00 ng/mL LAB CHEMISTRY METHOD 01/15/2024 2:50 PM EST [facility] Blood Venous blood specimen / Unknown Venipuncture / Unknown 01/15/2024 9:25 AM EST 01/15/2024 11:10 AM EST Narrative [facility] - 01/15/2024 2:50 PM EST The Siemens Advia Centaur Chemiluminescent Immunoassay is used. Results obtained with different assay methods or kits cannot be used interchangeably. Results cannot be interpreted as absolute evidence of the presence or absence of malignant disease. Nessa Jerez LAB BLOOD ORDERABLES Final R esult Performing Organization Address City/[facility]/ZIP Co de Phone Number [facility] [address] [place] [address], * (ABNORMAL) Complete blood count (01/15/2024 9:25 AM EST) WBC 9.7 4.8 - 10.8 K/mcL LAB HEMETOLOGY METHOD 01/15/2024 11:38 AM EST [facility] RBC 3.90(L) 4.50 - 5.50 M/mcL LAB HEMETOLOGY METHOD 01/15/2024 11:38 AM EST [facility] Hemoglobin 12.6(L) 13.5 - 17.5 g/dL LAB HEMETOLOGY METHOD 01/15/2024 11:38 AM [facility] LAB Hematocrit 39.2(L) 42.0 - 54.0 % LAB HEMETOLOGY METHOD 01/15/2024 11:38 AM [facility] LAB MCV 101.6(H) 79.0 - 98.0 FL LAB HEMETOLOGY METHOD 01/15/2024 11:38 AM [facility] LAB MCH 32.6(H) 27.0 - 32.0 pcg LAB HEMETOLOGY METHOD 01/15/2024 11:38 AM [facility] LAB MCHC 32.1 32.0 - 37.0 g/dL LAB HEMETOLOGY METHOD 01/15/2024 11:38 AM [facility] LAB RDW 13.8 11.0 - 15.0 % LAB HEMETOLOGY METHOD 01/15/2024 11:38 AM [facility] LAB Platelets 182 130 - 400 K/mcL LAB HEMETOLOGY METHOD 01/15/2024 11:38 AM [facility] LAB MPV 10.0 7.0 - 11.0 FL LAB HEMETOLOGY METHOD 01/15/2024 11:38 AM [facility] LAB NRBC 0.0 <1.0 % LAB HEMETOLOGY METHOD 01/15/2024 11:38 AM [facility] LAB NRBC Absolute 0.00 <0.10 K/mcL LAB HEMETOLOGY METHOD 01/15/2024 11:38 AM [facility] LAB Blood Venous blood specimen / Unknown Venipuncture / Unknown 01/15/2024 9:25 AM EST 01/15/2024 11:10 AM EST us Nessa Jerez NP LAB BLOOD ORDERABLES Final R esult [facility] [address] [place] [address], documented in this encounter Visit Diagnoses Diagnosis Encounter for screening for malignant neoplasm of prostate Vitamin B12 deficiency anemia due to intrinsic factor deficiency Pernicious anemia Vitamin D deficiency, unspecified documented in this encounter Care Teams Cad Designer Relationship Specialty Start Date End Date Nessa Jerez NP [address] [place] [address] PCP - General Nurse Practitioner 04/03/24 documented as of this encounter
--- OUTSIDE RECORDS SUMMARY | 2024-11-04 03:24 | XMS_ITS | Encounter Summary ---
Author Organization [facility] Address [address] [place] [address] Care Team Providers Care Public Health Aide Name Role Phone Nessa Jerez NP Primary Care Provider [phone] Encounter Details Date Type Department Care Team (Late st Contact Info) Description 06/03/2024 Lab Requisition [facility] - Main Lab 299 [facility] [place] [address] Omar Mccloud NP [address] [place] [address] Other alf (current) drug therapy Social History Tobacco Use [...] Procedure Name Priority Date/Time Associated Diagnosis Comments RBC MORPHOLOGY REVIEW Routine 06/03/2024 11:19 AM EDT 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 CBC WITH AUTO DIFFERENTIAL Routine 06/03/2024 11:19 AM EDT Other alf (current) drug therapy CBC AND DIFFERENTIAL Routine 06/03/2024 11:19 AM EDT 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 documented in this encounter Results * (ABNORMAL) RBC morphology review (06/03/2024 11:19 AM EDT) Rbc Morphology Consistent with indices Consistent with indices, Normal for [place] LAB HEMETOLOGY METHOD 06/03/2024 1:25 PM EDT [facility] LAB Platelet Morphology - WAM See Note(A) Normal LAB HEMETOLOGY METHOD 06/03/2024 1:[address] [facility] LAB Comment:PLT: Normal Blood Venous blood specimen / Unknown Venipuncture / Unknown 06/03/2024 11:19 AM EDT 06/03/2024 12:27 PM EDT Omar Mccloud PHYSICAL THERAPIST ASSISTANT LAB BLOOD ORDERABLES Final Result [facility] [address] [place] [address], [place] [phone] * (ABNORMAL) CBC auto differential (06/03/2024 11:19 AM EDT) WBC 11.8(H) 4.8 - 10.8 K/mcL LAB HEMETOLOGY METHOD 06/03/2024 1:[address] [facility] RBC 4.20(L) 4.50 - 5.50 M/mcL LAB HEMETOLOGY METHOD 06/03/2024 1:[address] [facility] Hemoglobin 13.8 13.5 - 17.5 g/dL LAB HEMETOLOGY METHOD 06/03/2024 1:[address] [facility] Hematocrit 42.0 42.0 - 54.0 % LAB HEMETOLOGY METHOD 06/03/2024 1:[address] [facility] LAB MCV 99.8(H) 79.0 - 98.0 FL LAB HEMETOLOGY METHOD 06/03/2024 1:[address] [facility] LAB MCH 32.8(H) 27.0 - 32.0 pcg LAB HEMETOLOGY METHOD 06/03/2024 1:[address] [facility] LAB MCHC 32.9 32.0 - 37.0 g/dL LAB HEMETOLOGY METHOD 06/03/2024 1:[address] [facility] RDW 14.2 11.0 - 15.0 % LAB HEMETOLOGY METHOD 06/03/2024 1:[address] [facility] LAB Platelets 171 130 - 400 K/mcL LAB HEMETOLOGY METHOD 06/03/2024 1:[address] [facility] LAB MPV 10.0 7.0 - 11.0 FL LAB HEMETOLOGY METHOD 06/03/2024 1:[address] [facility] NRBC 0.0 <1.0 % LAB HEMETOLOGY METHOD 06/03/2024 1:[address] [facility] NRBC Absolute 0.00 <0.10 K/mcL LAB HEMETOLOGY METHOD 06/03/2024 1:[address] [facility] Neutrophils Relative 35.2 % LAB HEMETOLOGY METHOD 06/03/2024 1:[address] [facility] Comment:This is an appended report. These results have been appended to a previously preliminary verified report. Lymphocytes Relative 58.0 % LAB HEMETOLOGY METHOD 06/03/2024 1:[address] [facility] Comment:This is an appended report. These results have been appended to a previously preliminary verified report. Monocytes Relative 6.1 % LAB HEMETOLOGY METHOD 06/03/2024 1:[address] [facility] Comment:This is an appended report. These results have been appended to a previously preliminary verified report. Eosinophils Relative 0.0 % LAB HEMETOLOGY METHOD 06/03/2024 1:[address] [facility] Comment:This is an appended report. These results have been appended to a previously preliminary verified report. Basophils Relative 0.4 % LAB HEMETOLOGY METHOD 06/03/2024 1:[address] [facility] Comment:This is an appended report. These results have been appended to a previously preliminary verified report. Immature Granulocytes Relative 0.3 % LAB HEMETOLOGY METHOD 06/03/2024 1:[address] [facility] Comment:This is an appended report. These results have been appended to a previously preliminary verified report. Neutrophils Absolute 4.15 1.50 - 7.00 K/mcL LAB HEMETOLOGY METHOD 06/03/2024 1:25 PM [facility] Comment:This is an appended report. These results have been appended to a previously preliminary verified report. Lymphocytes Absolute 6.86(H) 1.00 - 5.00 K/mcL LAB HEMETOLOGY METHOD 06/03/2024 1:25 PM [facility] LAB Comment:This is an appended report. These results have been appended to a previously preliminary verified report. Monocytes Absolute 0.72 0.20 - 1.00 K/mcL LAB HEMETOLOGY METHOD 06/03/2024 1:25 PM [facility] LAB Comment:This is an appended report. These results have been appended to a previously preliminary verified report. Eosinophils Absolute 0.00 0.00 - 0.50 K/mcL LAB HEMETOLOGY METHOD 06/03/2024 1:25 PM [facility] LAB Comment:This is an appended report. These results have been appended to a previously preliminary verified report. Basophils Absolute 0.05 0.00 - 0.20 K/mcL LAB HEMETOLOGY METHOD 06/03/2024 1:25 PM [facility] LAB Comment:This is an appended report. These results have been appended to a previously preliminary verified report. Immature Granulocytes Absolute 0.04(H) 0.00 - 0.03 K/mcL LAB HEMETOLOGY METHOD 06/03/2024 1:25 PM [facility] LAB Comment:This is an appended report. These results have been appended to a previously preliminary verified report. Blood Venous blood specimen / Unknown Venipuncture / Unknown 06/03/2024 11:19 AM EDT 06/03/2024 12:27 PM EDT us Omar Mccloud PHYSICAL THERAPIST ASSISTANT LAB BLOOD ORDERABLES Final Result [facility]) [facility] [address] [place] [address], documented in this encounter Visit Diagnoses Diagnosis Other alf (current) drug therapy documented in this encounter Care Teams Public Health Aide Relationship Specialty Start Date End Date Nessa Jerez NP [address] [place] [address] PCP - General Nurse Practitioner 04/03/24 documented as of this encounter
--- OUTSIDE RECORDS SUMMARY | 2024-11-04 03:24 | XMS_ITS | Encounter Summary ---
Author Organization [facility] Address [address] [place] [address] Care Team Providers Care Sole Conforming Machine Operator Name Role Phone Nessa Jerez NP Primary Care Provider Encounter Details Date Type Department Care Team (Late st Contact Info) Description 10/20/2024 Lab Requisition [facility] - Main Lab [address] [facility] [place] [address] Paloma Parekh NP [address] [place] [address] Other long-term (current) drug therapy; Schizophrenia, unspecified (CMS/HCC V24, CMS/HCC V28) Social History Tobacco Use Types Packs/Day Years [...] Comments MANUAL DIFFERENTIAL - [facility] WAM Routine 10/21/2024 6:32 AM EDT Other long-term (current) drug therapy Schizophrenia, unspecified (CMS/HCC V24, CMS/HCC V28) CBC WITH AUTO DIFFERENTIAL Routine 10/21/2024 6:32 AM EDT 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 Schizophrenia, unspecified (CMS/HCC V24, CMS/HCC V28) CBC AND DIFFERENTIAL Routine 10/21/2024 6:32 AM EDT Other long-term (current) drug therapy Schizophrenia, unspecified (CMS/HCC V24, CMS/HCC V28) documented in this encounter Results * (ABNORMAL) Manual differential (10/21/2024 6:32 AM EDT) Neutrophils % 12.0 % LAB HEMETOLOGY METHOD 10/21/2024 10:17 AM [facility] Lymphocytes % 84.0 % LAB HEMETOLOGY METHOD 10/21/2024 10:17 AM [facility] Monocytes % 3.0 % LAB HEMETOLOGY METHOD 10/21/2024 10:17 AM [facility] Eosinophils % 0.0 % LAB HEMETOLOGY METHOD 10/21/2024 10:17 AM [facility] Basophils % 1.0 % LAB HEMETOLOGY METHOD 10/21/2024 10:17 AM [facility] Neutrophils Absolute Manual 1.15(L) 1.50 - 7.00 K/mcL LAB HEMETOLOGY METHOD 10/21/2024 10:17 AM [facility] Lymphocytes Absolute 8.06(H) 1.00 - 5.00 K/mcL LAB HEMETOLOGY METHOD 10/21/2024 10:17 AM [facility] Monocytes Absolute Manual 0.29 0.20 - 1.00 K/mcL LAB HEMETOLOGY METHOD 10/21/2024 10:17 AM [facility] Eosinophils Absolute Manual 0.00 0.00 - 0.50 K/mcL LAB HEMETOLOGY METHOD 10/21/2024 10:17 AM [facility] Basophils Absolute Manual 0.10 0.00 - 0.20 K/mcL LAB HEMETOLOGY METHOD 10/21/2024 10:17 AM [facility] Rbc Morphology See comment( A) Consistent with indices, Normal for LAB HEMETOLOGY METHOD 10/21/2024 10:17 AM [facility] Comment:RBC: Morphology agre es with CBC Platelet Morphology - WAM See Note(A) Normal LAB HEMETOLOGY METHOD 10/21/2024 10:17 AM EDT [facility] Comment:PLT: Normal Blood Venous blood specimen / Unknown Venipuncture / Unknown 10/21/2024 6:32 AM EDT 10/21/2024 8:47 AM EDT Paloma Parekh DENTAL SURGERY DOCTOR LAB BLOOD ORDERABLES Final R esult [facility] [address] [place] [address], * (ABNORMAL) CBC auto differential (10/21/2024 6:32 AM EDT) WBC 9.6 4.8 - 10.8 K/mcL LAB HEMETOLOGY METHOD 10/21/2024 10:17 AM [facility] RBC 3.90(L) 4.50 - 5.50 M/mcL LAB HEMETOLOGY METHOD 10/21/2024 10:17 AM [facility] Hemoglobin 12.6(L) 13.5 - 17.5 g/dL LAB HEMETOLOGY METHOD 10/21/2024 10:17 AM [facility] Hematocrit 38.0(L) 42.0 - 54.0 % LAB HEMETOLOGY METHOD 10/21/2024 10:17 AM [facility] LAB MCV 98.7(H) 79.0 - 98.0 FL LAB HEMETOLOGY METHOD 10/21/2024 10:17 AM [facility] MCH 32.7(H) 27.0 - 32.0 pcg LAB HEMETOLOGY METHOD 10/21/2024 10:17 AM [facility] MCHC 33.2 32.0 - 37.0 g/dL LAB HEMETOLOGY METHOD 10/21/2024 10:17 AM [facility] RDW 14.4 11.0 - 15.0 % LAB HEMETOLOGY METHOD 10/21/2024 10:17 AM EDT [facility] Platelets 141 130 - 400 K/mcL LAB HEMETOLOGY METHOD 10/21/2024 10:17 AM EDT [facility] MPV 10.3 7.0 - 11.0 FL LAB HEMETOLOGY METHOD 10/21/2024 10:17 AM EDT [facility] NRBC 0.0 <1.0 % LAB HEMETOLOGY METHOD 10/21/2024 10:17 AM EDT [facility] NRBC Absolute 0.00 <0.10 K/mcL LAB HEMETOLOGY METHOD 10/21/2024 10:17 AM EDT [facility] Blood Venous blood specimen / Unknown Venipuncture / Unknown 10/21/2024 6:32 AM EDT 10/21/2024 8:47 AM EDT us Paloma Parekh DENTAL SURGERY DOCTOR LAB BLOOD ORDERABLES Final R esult [facility] [address] [place] [address], documented in this encounter Visit Diagnoses Diagnosis 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
--- OUTSIDE RECORDS SUMMARY | 2024-11-04 03:24 | XMS_ITS | Patient Health Record ---
Author Organization [facility] Address [address] [place] [address] Care Team Providers Care Timing Inspector Name Role Phone Solitario JOHNSON, Nessa Primary Care Provider Jorge Russ Jr Unavailable Reason For Referral No Information Medications Medication SIG (Take, Route, Frequency, Duration) Notes Start Date End Date Status Lactulose 30ml Activ e KlonoPIN 0.5mg Activ e Multi Vitamin/Minerals 03/12/20242024 Active Milk of Magnesia 30cc Active Ativan 1mg Active Vitamin E 400iu Acti ve Tylenol 650mg Active Clozaril 400mg Activ e Calcium 600+D3 Activ e Depakote 750mg Activ e Colace 100mg Active [place] Carbonate 600mg Active Zantac 150mg 03/12/2024 03/12/2024 Activ e Plan Of Treatment Pending Test Test Name Order Date OCCULT BLOOD STOOL X3 (OBS) 02/15/2012 Insurance Providers Payer Name Payer Address Payer Phone Subscriber Number Group Number Insured Name Patient Relationship to Insured Coverage Start Date Coverage End Date MEDICARE OF [place] [address] GUILLERMINA RODRÍGUEZ [id number] JEAN CARLOS LANDON Self - patient is the insured MEDICAID OF [facility] [address] [place] [address] [id number] JEAN CARLOS LANDON Self - patient is the insured Medical (General) History Medical History History ICD Code history of tuberculosis schizophrenia Denies DE,DM,CVA,Lung disease,renal dise ase Surgical History Surgery Date(Month/Year) tonsillectomy
--- OUTSIDE RECORDS SUMMARY | 2024-11-04 03:24 | XMS_ITS | Clinical Summary ---
Author Organization [facility] Address [address] [place] [address] Phone Care Team Providers Care Fence Installer Name Role Phone Nessa Jerez NP Primary Care Provider Encounters Date Type Department Care Team Description 10/20/2024 Lab Requisition [facility] - Main Lab [address] [facility] [place] [address] Paloma Parekh NP Other alf (current) drug therapy; Schizophrenia, unspecified (CMS/HCC V24, CMS/HCC V28) from Last 3 Months Social History Tobacco Use Types Packs/Day Years Used Date Smoking Tobacco: Never Assessed Sex and Gender Information Value Date Recorded Sex Assigned at Not on file Legal Sex Male 10:34 PM EST Gender Identity Not on file Sexual Orientation Not on file Plan of Treatment Health Maintenance Due Date Last Done Comments DTaP,Tdap,and Td Vaccines (1 - Tdap) 05/20/1974 Pneumococcal Vaccine: 50+ Years (1 of 2 - PCV) 05/20/1974 Zoster Vaccines (1 of 2) 05/20/2005 RSV Immunization Adult Patients (1 - Risk 60-74 years 1-dose series) 2015 Abdominal Aortic Aneurysm (AAA) Screen 02/12/2022 Cholesterol Screening (Lipid Panel) 02/12/2022 Colorectal Cancer Screening: Colonoscopy 02/12/2022 Falls Risk Assessment 02/12/2022 Hepatitis C Screening 02/12/2022 Medicare Annual Wellness Visit 02/12/2022 Social Influencers of Health Screening 02/12/2022 COVID-19 Vaccine ( season) 2023 01/05/2021, 04/29/2020, 04/08/2020 Depression Screening 03/12/2024 Influenza Vaccine (#1) 2024 3, 12/25/2018, 02/07/2018, Additional history exists HIB Vaccines Aged Out No longer eligi ble based on patient's age to complete this topic HPV Vaccines Aged Out No longer eligi ble based on patient's age to complete this topic Hepatitis A Vaccines Aged Out No long er eligible based on patient's age to complete this topic Hepatitis B Vaccines Aged Out No long er eligible based on patient's age to complete this topic IPV Vaccines Aged Out No longer eligi ble based on patient's age to complete this topic MMR Vaccines Aged Out No longer eligi ble based on patient's age to complete this topic Meningococcal ACWY Vaccine Aged Out N o longer eligible based on patient's age to complete this topic Meningococcal B Vaccine Aged Out No l onger eligible based on patient's age to complete this topic RSV Immunization Patients Under 20 months Aged Out No longer eligible based on patient's age to complete this topic Varicella Vaccines Aged Out No longer eligible based on patient's age to complete this topic Procedures Procedure Name Priority Date/Time Associated Diagnosis Comments MANUAL DIFFERENTIAL - SYSMEX WAM Routine 10/21/2024 6:32 AM EDT Other alf (current) drug therapy Schizophrenia, unspecified (CMS/HCC V24, CMS/HCC V28) CBC WITH AUTO DIFFERENTIAL Routine 10/21/2024 6:32 AM EDT 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 Lymphocytes % 84.0 % LAB HEMETOLOGY METHOD 10/21/2024 10:[address] [facility] Monocytes % 3.0 % LAB HEMETOLOGY METHOD 10/21/2024 10:17 AM [facility] Eosinophils % 0.0 % LAB HEMETOLOGY METHOD 10/21/2024 10:17 AM [facility] Basophils % 1.0 % LAB HEMETOLOGY METHOD 10/21/2024 10:17 AM [facility] Neutrophils Absolute Manual 1.15(L) 1.50 - 7.00 K/mcL LAB HEMETOLOGY METHOD 10/21/2024 10:17 AM [facility] Lymphocytes Absolute 8.06(H) 1.00 - 5.00 K/mcL LAB HEMETOLOGY METHOD 10/21/2024 10:17 AM [facility] Monocytes Absolute Manual 0.29 0.20 - 1.00 K/mcL LAB HEMETOLOGY METHOD 10/21/2024 10:17 AM [facility] Eosinophils Absolute Manual 0.00 0.00 - 0.50 K/mcL LAB HEMETOLOGY METHOD 10/21/2024 10:17 AM [facility] Basophils Absolute Manual 0.10 0.00 - 0.20 K/mcL LAB HEMETOLOGY METHOD 10/21/2024 10:17 AM [facility] Rbc Morphology See comment( A) Consistent with indices, Normal for [place] LAB HEMETOLOGY METHOD 10/21/2024 10:17 AM [facility] Comment:RBC: Morphology agre es with CBC Platelet Morphology - WAM See Note(A) Normal LAB HEMETOLOGY METHOD 10/21/2024 10:17 AM [facility] Comment:PLT: Normal Blood Venous blood specimen / Unknown Venipuncture / Unknown 10/21/2024 6:32 AM EDT 10/21/2024 8:47 AM EDT Paloma Whittredge NETWORK CONTROL SUPERVISOR LAB BLOOD ORDERABLES Final R esult [facility] [address] [place] [address], * (ABNORMAL) CBC auto differential (10/21/2024 6:32 AM EDT) WBC 9.6 4.8 - 10.8 K/mcL LAB HEMETOLOGY METHOD 10/21/2024 10:[address] [facility] RBC 3.90(L) 4.50 - 5.50 M/mcL LAB HEMETOLOGY METHOD 10/21/2024 10:[address] [facility] Hemoglobin 12.6(L) 13.5 - 17.5 g/dL LAB HEMETOLOGY METHOD 10/21/2024 10:[address] [facility] Hematocrit 38.0(L) 42.0 - 54.0 % LAB HEMETOLOGY METHOD 10/21/2024 10:[address] [facility] MCV 98.7(H) 79.0 - 98.0 FL LAB HEMETOLOGY METHOD 10/21/2024 10:[address] [facility] MCH 32.7(H) 27.0 - 32.0 pcg LAB HEMETOLOGY METHOD 10/21/2024 10:[address] [facility] MCHC 33.2 32.0 - 37.0 g/dL LAB HEMETOLOGY METHOD 10/21/2024 10:[address] [facility] RDW 14.4 11.0 - 15.0 % LAB HEMETOLOGY METHOD 10/21/2024 10:[address] [facility] Platelets 141 130 - 400 K/mcL LAB HEMETOLOGY METHOD 10/21/2024 10:[address] [facility] MPV 10.3 7.0 - 11.0 FL LAB HEMETOLOGY METHOD 10/21/2024 10:[address] [facility] NRBC 0.0 <1.0 % LAB HEMETOLOGY METHOD 10/21/2024 10:[address] [facility] NRBC Absolute 0.00 <0.10 K/mcL LAB HEMETOLOGY METHOD 10/21/2024 10:[address] [facility] Blood Venous blood specimen / Unknown Venipuncture / Unknown 10/21/2024 6:32 AM EDT 10/21/2024 8:47 AM EDT us Paloma Parekh NP LAB BLOOD ORDERABLES Final R esult [facility] [address] [place] [address], from Last 3 Months Insurance [facility] MEDICARE Member Subscriber Plan / Payer (Ef fective 2012-Present) Name:ROGER LANDON Relation to Subscriber:Self Name:Roger Landon Payer ID:[id number] Group ID:[id number] Type:Not on file Address: [facility] [facility] [place] [address] Care Teams Fence Installer Relationship Specialty Start Date End Date Nessa Jerez NP [address] [place] [address] PCP - General Nurse Practitioner 04/03/24
--- OUTSIDE RECORDS SUMMARY | 2024-11-04 03:24 | XMS_ITS | Encounter Summary ---
Author Organization 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 Social History Tobacco Use [...] Comments MANUAL DIFFERENTIAL - SYSMEX WAM Routine 02/12/2024 7:00 AM EST Other fpc (current) drug therapy CBC WITH AUTO DIFFERENTIAL Routine 02/12/2024 7:00 AM EST Other fpc (current) drug therapy CBC AND DIFFERENTIAL Routine 02/12/2024 7:00 AM EST Other fpc (current) drug therapy documented in this encounter Results * (ABNORMAL) Manual differential (02/12/2024 7:00 AM EST) Neutrophils % 42.0 % LAB HEMETOLOGY METHOD 02/12/2024 12:20 PM EST [facility] Lymphocytes % 50.0 % LAB HEMETOLOGY METHOD 02/12/2024 12:20 PM [facility] Monocytes % 5.0 % LAB HEMETOLOGY METHOD 02/12/2024 12:20 PM [facility] Eosinophils % 0.0 % LAB HEMETOLOGY METHOD 02/12/2024 12:20 PM [facility] Basophils % 3.0 % LAB HEMETOLOGY METHOD 02/12/2024 12:20 PM [facility] Neutrophils Absolute Manual 4.16 1.50 - 7.00 K/mcL LAB HEMETOLOGY METHOD 02/12/2024 12:20 PM [facility] Lymphocytes Absolute 4.95 1.00 - 5.00 K/mcL LAB HEMETOLOGY METHOD 02/12/2024 12:20 PM [facility] Monocytes Absolute Manual 0.50 0.20 - 1.00 K/mcL LAB HEMETOLOGY METHOD 02/12/2024 12:20 PM [facility] Eosinophils Absolute Manual 0.00 0.00 - 0.50 K/mcL LAB HEMETOLOGY METHOD 02/12/2024 12:20 PM [facility] Basophils Absolute Manual 0.30(H) 0.00 - 0.20 K/mcL LAB HEMETOLOGY METHOD 02/12/2024 12:20 PM [facility] Rbc Morphology Consistent with indices Consistent with indices, Normal for [place] LAB HEMETOLOGY METHOD 02/12/2024 12:20 PM [facility] Platelet Morphology - WAM See Note(A) Normal LAB HEMETOLOGY METHOD 02/12/2024 12:20 PM [facility] Comment:PLT: Normal Blood Venous blood specimen / Unknown Venipuncture / Unknown 02/12/2024 7:00 AM EST 02/12/2024 10:41 AM EST Peter Asif Landstrom SANITARY [place] MACHINE TENDER LAB BLOOD ORDERABLES Final Result [facility] [address] [place] [address], * (ABNORMAL) CBC auto differential (02/12/2024 7:00 AM EST) WBC 9.9 4.8 - 10.8 K/mcL LAB HEMETOLOGY METHOD 02/12/2024 12:20 PM EST [facility] RBC 3.90(L) 4.50 - 5.50 M/mcL LAB HEMETOLOGY METHOD 02/12/2024 12:20 PM [facility] Hemoglobin 12.7(L) 13.5 - 17.5 g/dL LAB HEMETOLOGY METHOD 02/12/2024 12:20 PM [facility] Hematocrit 40.2(L) 42.0 - 54.0 % LAB HEMETOLOGY METHOD 02/12/2024 12:20 PM EST [facility] MCV 103.1(H) 79.0 - 98.0 FL LAB HEMETOLOGY METHOD 02/12/2024 12:20 PM EST [facility] MCH 32.6(H) 27.0 - 32.0 pcg LAB HEMETOLOGY METHOD 02/12/2024 12:20 PM [facility] MCHC 31.6(L) 32.0 - 37.0 g/dL LAB HEMETOLOGY METHOD 02/12/2024 12:20 PM EST [facility] RDW 14.1 11.0 - 15.0 % LAB HEMETOLOGY METHOD 02/12/2024 12:20 PM EST [facility] Platelets 160 130 - 400 K/mcL LAB HEMETOLOGY METHOD 02/12/2024 12:20 PM [facility] MPV 11.0 7.0 - 11.0 FL LAB HEMETOLOGY METHOD 02/12/2024 12:20 PM EST [facility] NRBC 0.0 <1.0 % LAB HEMETOLOGY METHOD 02/12/2024 12:20 PM EST [facility] NRBC Absolute 0.00 <0.10 K/mcL LAB HEMETOLOGY METHOD 02/12/2024 12:20 PM EST [facility] Blood Venous blood specimen / Unknown Venipuncture / Unknown 02/12/2024 7:00 AM EST 02/12/2024 10:41 AM EST us Omar Mccloud SANITARY [place] MACHINE TENDER LAB BLOOD ORDERABLES Final Result [facility] [address] [place] [address], documented in this encounter Visit Diagnoses Diagnosis 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
--- OUTSIDE RECORDS SUMMARY | 2024-11-04 03:24 | XMS_ITS | Encounter Summary ---
Author Organization [facility] Address [address] [place] [address] Care Team Providers Care Hot Billet Shear Operator Name Role Phone Nessa Jerez NP Primary Care Provider Encounter Details Date Type Department Care Team (Late st Contact Info) Description 05/06/2024 Lab Requisition [facility] - Main Lab [address] [facility] [place] [address] Omar Mccloud NP [address] [place] [address] Other group home (current) drug therapy; Hypokalemia Social History Tobacco Use Types Packs/Day Years [...] Diagnosis Comments CBC WITH AUTO DIFFERENTIAL Routine 05/06/2024 6:23 AM EST Other group home (current) drug therapy Hypokalemia CBC AND DIFFERENTIAL Routine 05/06/2024 6:23 AM EST 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 Hypokalemia POTASSIUM Routine 05/06/2024 6:23 AM EST Other group home (current) drug therapy Hypokalemia documented in this encounter Results * (ABNORMAL) CBC auto differential (05/06/2024 6:23 AM EST) WBC 11.3(H) 4.8 - 10.8 K/mcL LAB HEMETOLOGY METHOD 05/06/2024 10:55 AM [facility] RBC 4.20(L) 4.50 - 5.50 M/mcL LAB HEMETOLOGY METHOD 05/06/2024 10:55 AM [facility] Hemoglobin 13.3(L) 13.5 - 17.5 g/dL LAB HEMETOLOGY METHOD 05/06/2024 10:55 AM [facility] Hematocrit 42.0 42.0 - 54.0 % LAB HEMETOLOGY METHOD 05/06/2024 10:55 AM [facility] MCV 100.0(H) 79.0 - 98.0 FL LAB HEMETOLOGY METHOD 05/06/2024 10:55 AM [facility] MCH 31.7 27.0 - 32.0 pcg LAB HEMETOLOGY METHOD 05/06/2024 10:55 AM [facility] MCHC 31.7(L) 32.0 - 37.0 g/dL LAB HEMETOLOGY METHOD 05/06/2024 10:55 AM [facility] RDW 14.0 11.0 - 15.0 % LAB HEMETOLOGY METHOD 05/06/2024 10:55 AM [facility] Platelets 171 130 - 400 K/mcL LAB HEMETOLOGY METHOD 05/06/2024 10:55 AM [facility] MPV 10.3 7.0 - 11.0 FL LAB HEMETOLOGY METHOD 05/06/2024 10:55 AM [facility] NRBC 0.0 <1.0 % LAB HEMETOLOGY METHOD 05/06/2024 10:55 AM [facility] NRBC Absolute 0.00 <0.10 K/mcL LAB HEMETOLOGY METHOD 05/06/2024 10:55 AM [facility] Neutrophils Relative 27.7 % LAB HEMETOLOGY METHOD 05/06/2024 10:55 AM [facility] Comment:This is an appended report. These results have been appended to a previously preliminary verified report. Lymphocytes Relative 63.2 % LAB HEMETOLOGY METHOD 05/06/2024 10:55 AM [facility] Comment:This is an appended report. These results have been appended to a previously preliminary verified report. Monocytes Relative 7.5 % LAB HEMETOLOGY METHOD 05/06/2024 10:55 AM [facility] Comment:This is an appended report. These results have been appended to a previously preliminary verified report. Eosinophils Relative 0.8 % LAB HEMETOLOGY METHOD 05/06/2024 10:55 AM [facility] Comment:This is an appended report. These results have been appended to a previously preliminary verified report. Basophils Relative 0.5 % LAB HEMETOLOGY METHOD 05/06/2024 10:55 AM [facility] Comment:This is an appended report. These results have been appended to a previously preliminary verified report. Immature Granulocytes Relative 0.3 % LAB HEMETOLOGY METHOD 05/06/2024 10:55 AM [facility] Comment:This is an appended report. These results have been appended to a previously preliminary verified report. Neutrophils Absolute 3.14 1.50 - 7.00 K/mcL LAB HEMETOLOGY METHOD 05/06/2024 10:55 AM [facility] Comment:This is an appended report. These results have been appended to a previously preliminary verified report. Lymphocytes Absolute 7.16(H) 1.00 - 5.00 K/mcL LAB HEMETOLOGY METHOD 05/06/2024 10:55 AM [facility] Comment:This is an appended report. These results have been appended to a previously preliminary verified report. Monocytes Absolute 0.85 0.20 - 1.00 K/mcL LAB HEMETOLOGY METHOD 05/06/2024 10:55 AM [facility] Comment:This is an appended report. These results have been appended to a previously preliminary verified report. Eosinophils Absolute 0.09 0.00 - 0.50 K/mcL LAB HEMETOLOGY METHOD 05/06/2024 10:55 AM EST [facility] Comment:This is an appended report. These results have been appended to a previously preliminary verified report. Basophils Absolute 0.06 0.00 - 0.20 K/mcL LAB HEMETOLOGY METHOD 05/06/2024 10:55 AM EST [facility] Comment:This is an appended report. These results have been appended to a previously preliminary verified report. Immature Granulocytes Absolute 0.03 0.00 - 0.03 K/mcL LAB [facility] 05/06/2024 10:55 AM EST [facility] Comment:This is an appended report. These results have been appended to a previously preliminary verified report. Blood Venous blood specimen / Unknown Venipuncture / Unknown 05/06/2024 6:23 AM EST 05/06/2024 10:18 AM EST Omar Mccloud NP LAB BLOOD ORDERABLES Final Result [facility] [address] [place] [address], [place] [phone] * Potassium (05/06/2024 6:23 AM EST) Potassium 4.1 3.5 - 5.5 mmol/L LAB CHEMISTRY METHOD 05/06/2024 11:18 AM EST [facility] Blood Venous blood specimen / Unknown Venipuncture / Unknown 05/06/2024 6:23 AM EST 05/06/2024 10:17 AM EST Omar Mccloud RUG DRYING MACHINE OPERATOR LAB BLOOD ORDERABLES Final Result Performing Organization Address City/[facility]/ZIP Co de Phone Number [facility] [address] [place] [address], [place] [phone] documented in this encounter Visit Diagnoses Diagnosis 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
--- OUTSIDE RECORDS SUMMARY | 2024-11-04 03:24 | XMS_ITS | Encounter Summary ---
Author Organization [facility] Address [address] [place] [address] Care Team Providers Care Conservation Scientist Name Role Phone Nessa Jerez NP Primary Care Provider [phone] Encounter Details Date Type Department Care Team (Late st Contact Info) Description 03/11/[address] [facility] - Main Lab [address] [facility] [place] [address] Omar Mccloud NP [address] [place] [address] Other senior living (current) drug therapy Social History Tobacco Use [...] Diagnosis Comments CBC WITH AUTO DIFFERENTIAL Routine 03/11/2024 7:18 AM EST Other terminal system operator (current) drug therapy CBC AND DIFFERENTIAL Routine 03/11/2024 7:18 AM EST Other terminal system operator (current) drug therapy documented in this encounter Results * (ABNORMAL) CBC auto differential (03/11/2024 7:18 AM EST) WBC 13.4(H) 4.8 - 10.8 K/[facility] LAB HEMETOLOGY METHOD 03/11/2024 12:43 PM EST [facility] RBC 3.80(L) 4.50 - 5.50 M/[facility] LAB HEMETOLOGY METHOD 03/11/2024 12:43 PM [facility] Hemoglobin 12.4(L) 13.5 - 17.5 g/dL LAB HEMETOLOGY METHOD 03/11/2024 12:43 PM [facility] LAB Hematocrit 38.7(L) 42.0 - 54.0 % LAB HEMETOLOGY METHOD 03/11/2024 12:43 PM [facility] LAB MCV 101.6(H) 79.0 - 98.0 FL LAB HEMETOLOGY METHOD 03/11/2024 12:43 PM [facility] LAB MCH 32.5(H) 27.0 - 32.0 pcg LAB HEMETOLOGY METHOD 03/11/2024 12:43 PM [facility] LAB MCHC 32.0 32.0 - 37.0 g/dL LAB HEMETOLOGY METHOD 03/11/2024 12:43 PM [facility] LAB RDW 14.2 11.0 - 15.0 % LAB HEMETOLOGY METHOD 03/11/2024 12:43 PM [facility] LAB Platelets 175 130 - 400 K/mcL LAB HEMETOLOGY METHOD 03/11/2024 12:43 PM [facility] LAB MPV 10.5 7.0 - 11.0 FL LAB HEMETOLOGY METHOD 03/11/2024 12:43 PM [facility] LAB NRBC 0.0 <1.0 % LAB HEMETOLOGY METHOD 03/11/2024 12:43 PM [facility] LAB NRBC Absolute 0.00 <0.10 K/mcL LAB HEMETOLOGY METHOD 03/11/2024 12:43 PM [facility] LAB Neutrophils Relative 51.8 % LAB HEMETOLOGY METHOD 03/11/2024 12:43 PM [facility] LAB Comment:This is an appended report. These results have been appended to a previously preliminary verified report. Lymphocytes Relative 38.9 % LAB HEMETOLOGY METHOD 03/11/2024 12:43 PM [facility] LAB Comment:This is an appended report. These results have been appended to a previously preliminary verified report. Monocytes Relative 8.5 % LAB HEMETOLOGY METHOD 03/11/2024 12:43 PM [facility] LAB Comment:This is an appended report. These results have been appended to a previously preliminary verified report. Eosinophils Relative 0.0 % LAB HEMETOLOGY METHOD 03/11/2024 12:43 PM [facility] LAB Comment:This is an appended report. These results have been appended to a previously preliminary verified report. Basophils Relative 0.3 % LAB HEMETOLOGY METHOD 03/11/2024 12:43 PM [facility] Comment:This is an appended report. These results have been appended to a previously preliminary verified report. Immature Granulocytes Relative 0.5 % LAB HEMETOLOGY METHOD 03/11/2024 12:43 PM [facility] Comment:This is an appended report. These results have been appended to a previously preliminary verified report. Neutrophils Absolute 6.93 1.50 - 7.00 K/mcL LAB HEMETOLOGY METHOD 03/11/2024 12:43 PM [facility] LAB Comment:This is an appended report. These results have been appended to a previously preliminary verified report. Lymphocytes Absolute 5.20(H) 1.00 - 5.00 K/mcL LAB HEMETOLOGY METHOD 03/11/2024 12:43 PM [facility] Comment:This is an appended report. These results have been appended to a previously preliminary verified report. Monocytes Absolute 1.13(H) 0.20 - 1.00 K/mcL LAB HEMETOLOGY METHOD 03/11/2024 12:43 PM [facility] LAB Comment:This is an appended report. These results have been appended to a previously preliminary verified report. Eosinophils Absolute 0.00 0.00 - 0.50 K/mcL LAB HEMETOLOGY METHOD 03/11/2024 12:43 PM EST [facility] LAB Comment:This is an appended report. These results have been appended to a previously preliminary verified report. Basophils Absolute 0.04 0.00 - 0.20 K/mcL LAB HEMETOLOGY METHOD 03/11/2024 12:43 PM EST [facility] LAB Comment:This is an appended report. These results have been appended to a previously preliminary verified report. Immature Granulocytes Absolute 0.07(H) 0.00 - 0.03 K/mcL LAB HEMETOLOGY METHOD 03/11/2024 12:43 PM EST [facility] LAB Comment:This is an appended report. These results have been appended to a previously preliminary verified report. 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
--- OUTSIDE RECORDS SUMMARY | 2024-11-04 03:24 | XMS_ITS | Encounter Summary ---
Author Organization [facility] Address [address] [place] [address] Care Team Providers Care Heat Treater Apprentice Name Role Phone Nessa Jerez NP Primary Care Provider Encounter Details Date Type Department Care Team (Late st Contact Info) Description 07/01/[address] [facility] - Main Lab [address] [facility] [address] Omar Mccloud NP [address] [place] [address] Other usp (current) drug therapy Social History Tobacco Use [...] Comments MANUAL DIFFERENTIAL - SYSMEX WAM Routine 07/01/2024 6:30 AM EDT Other usp (current) drug therapy CBC WITH AUTO DIFFERENTIAL Routine 07/01/2024 6:30 AM EDT Other usp (current) drug therapy CBC AND DIFFERENTIAL Routine 07/01/2024 6:30 AM EDT Other usp (current) drug therapy documented in this encounter Results * (ABNORMAL) Manual differential (07/01/2024 6:30 AM EDT) Neutrophils % 6.0 % LAB HEMETOLOGY METHOD 07/01/2024 10:15 AM EDT [facility] Lymphocytes % 90.0 % LAB HEMETOLOGY METHOD 07/01/2024 10:15 AM [facility] Monocytes % 4.0 % LAB HEMETOLOGY METHOD 07/01/2024 10:15 AM [facility] Eosinophils % 0.0 % LAB HEMETOLOGY METHOD 07/01/2024 10:15 AM [facility] Basophils % 0.0 % LAB HEMETOLOGY METHOD 07/01/2024 10:15 AM [facility] LAB Neutrophils Absolute Manual 0.55(L) 1.50 - 7.00 K/mcL LAB HEMETOLOGY METHOD 07/01/2024 10:15 AM [facility] Lymphocytes Absolute 8.28(H) 1.00 - 5.00 K/mcL LAB HEMETOLOGY METHOD 07/01/2024 10:15 AM [facility] LAB Monocytes Absolute Manual 0.37 0.20 - 1.00 K/mcL LAB HEMETOLOGY METHOD 07/01/2024 10:15 AM [facility] Eosinophils Absolute Manual 0.00 0.00 - 0.50 K/mcL LAB HEMETOLOGY METHOD 07/01/2024 10:15 AM [facility] Basophils Absolute Manual 0.00 0.00 - 0.20 K/mcL LAB HEMETOLOGY METHOD 07/01/2024 10:15 AM [facility] Rbc Morphology Consistent with indices Consistent with indices, Normal for [place] LAB HEMETOLOGY METHOD 07/01/2024 10:15 AM [facility] LAB Platelet Morphology - WAM Normal Normal LAB HEMETOLOGY METHOD 07/01/2024 10:15 AM [facility] Blood Venous blood specimen / Unknown Venipuncture / Unknown 07/01/2024 6:30 AM EDT 07/01/2024 8:15 AM EDT us Omar Mccloud [employer] CONSULTANT LAB BLOOD ORDERABLES Final Result [facility] [address] [place] [address], * (ABNORMAL) CBC auto differential (07/01/2024 6:30 AM EDT) WBC 9.2 4.8 - 10.8 K/mcL LAB HEMETOLOGY METHOD 07/01/2024 10:15 AM EDT [facility] RBC 3.90(L) 4.50 - 5.50 M/mcL LAB HEMETOLOGY METHOD 07/01/2024 10:15 AM EDT [facility] Hemoglobin 12.8(L) 13.5 - 17.5 g/dL LAB HEMETOLOGY METHOD 07/01/2024 10:15 AM EDT [facility] Hematocrit 38.3(L) 42.0 - 54.0 % LAB HEMETOLOGY METHOD 07/01/2024 10:15 AM EDT [facility] LAB MCV 98.7(H) 79.0 - 98.0 FL LAB HEMETOLOGY METHOD 07/01/2024 10:15 AM EDT [facility] MCH 33.0(H) 27.0 - 32.0 pcg LAB HEMETOLOGY METHOD 07/01/2024 10:15 AM EDT [facility] MCHC 33.4 32.0 - 37.0 g/dL LAB HEMETOLOGY METHOD 07/01/2024 10:15 AM EDT [facility] RDW 14.1 11.0 - 15.0 % LAB HEMETOLOGY METHOD 07/01/2024 10:15 AM T [facility] Platelets 135 130 - 400 K/mcL LAB HEMETOLOGY METHOD 07/01/2024 10:15 AM EDT [facility] MPV 10.3 7.0 - 11.0 FL LAB HEMETOLOGY METHOD 07/01/2024 10:15 AM EDT [facility] NRBC 0.0 <1.0 % LAB HEMETOLOGY METHOD 07/01/2024 10:15 AM EDT [facility] NRBC Absolute 0.00 <0.10 K/mcL LAB HEMETOLOGY METHOD 07/01/2024 10:15 AM EDT [facility] Blood Venous blood specimen / Unknown Venipuncture / Unknown 07/01/2024 6:30 AM EDT 07/01/2024 8:15 AM EDT us Omar Mccloud NP LAB BLOOD ORDERABLES Final Result [facility] [address] [place] [address], documented in this encounter Visit Diagnoses Diagnosis Other usp (current) drug therapy documented in this encounter Care Teams Heat Treater Apprentice Relationship Specialty Start Date End Date Nessa Jerez NP [address] [place] [address] PCP - General Nurse Practitioner 04/03/24 documented as of this encounter
[2024-11-04 03:25] VITALS: BP 163/91; PULSE 76; RESP 20; TEMP 37; O2SAT 97
[2024-11-04 03:46] VITALS: BP 163/91; PULSE 76; RESP 20; TEMP 37; O2SAT 97
== END 2024-11-04 05:50 | disposition home or self-care (01) ==
LOC: HO.ED 11-04 03:21
PROVIDERS: Emergency Provider Emergency Medicine
DX: K59.00 Constipation, unspecified (principal); R41.82 Altered mental status, unspecified; E83.42 Hypomagnesemia; F20.9 Schizophrenia, unspecified; Z79.899 Other long term (current) drug therapy
CPT/HCPCS: 36415; 74018; 80048; 83735; 85025; 99283; 99284

== ENCOUNTER → 2024-11-03 22:10 | Outpatient (BNV) | payer OTHER, SELFPAY | PROVIDERS: Emergency Provider Emergency Medicine; Visit Provider Radiology Neuroradiology | DX: K59.00 Constipation, unspecified (principal) | CPT/HCPCS: 74018 ==